=== PATIENT | male | born 1995 | race Two or more races ===

== ENCOUNTER 2025-04-24 10:17 | Outpatient (AMB) | payer MEDICAID, SELFPAY ==
--- OUTSIDE RECORDS SUMMARY | 2024-01-15 12:18 | XMS_ITS | Encounter Summary ---
Author Organization [facility] Address [address] [place] [address] Care Team Providers Care Sourcing Assistant Name Role Phone Pcp, No Primary Care Provider Unavailabl e Encounter Details Date Type Department Care Team (Late st Contact Info) Description 01/15/2024 12:18 PM EDT Hospital Encounter [facility] [address] [place] [address] Renita Carcamo, CHRISTOPHER [address] [place] [address] Social History Tobacco Use Types Packs/Day Years [...] on filedocumented in this encounter Care Teams Sourcing Assistant Relationship Specialty Start Date End Date Pcp, No PCP - General General Medicine 11/10/22 documented as of this encounter
--- NOTE | 2025-04-24 10:22 | A.OFFPC_ITS ---
Vital Signs 04/24/25 10:35 Height 5 ft 10.24 in Weight 184 lb BMI 26.2 BP 132/98 H Blood Pressure Location Lt brachial Position Sitting Respiration 16 Pulse 86 Pulse Source Pulse Oximeter Temp 98.4 F Temp Source Oral Pulse Oximetry (%) 98 Oxygen Delivery Method Room Air Intake Visit Reasons: [employer]- Vasectomy Follow - Up / Pain Intake Note: pt here today for chest pain and high blood pressure. 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 Accompanied by: Self / Same As Patient Allergies No Known Allergies Allergy (Verified 04/24/25 10:30) Medication List - Last Reconciled 04/24/25 by Neptali Paulino MD No Known Home Meds Tobacco use date assessed: 04/24/25 Dental Screening Dental Screen Date: 04/24/25 Did you have a dental visit in the last 12 months?: Yes Did you have a dental problem in the last 6 months where you did not have access to dental care?: No Was dental information given to patient?: Patient has dentist HPI HPI Comments History of Present Illness Details History of Present Illness The patient is a 29-year-old male presenting with chest pain and anxiety. Chest pain: - The patient reports experiencing chest pain for approximately four months, characterized by pressure and exacerbated by deep breaths. - The pain is sometimes associated with anxiety and panic attacks, and is described as feeling like an elephant sitting on the chest. - The patient has not been diagnosed wit h hypertension but experiences headaches when blood pressure is elevated. Anxiety: - The patient reports anxiety and panic attacks, often triggered by stressors such as family issues and past traumatic events. - Symptoms include palpitations, cold fi ngertips, and fatigue following episodes. Tobacco use disorder: - The patient has been smoking cigarette s since the age of 10 or 11, with variable daily consumption depending on stress levels. Cannabis use disorder: - The patient smokes cannabis regularly, approximately every two hours when at home, influenced by stress levels. Inguinal hernia: - The patient has a history of bilateral inguinal hernias with surgical repair two years ago and reports possible recurrence near the umbilicus. Post-vasectomy pain: - The patient underwent a vasectomy two years ago and experiences intermittent pain in the inguinal area, exacerbated by physical activity. Eczema: - The patient reports eczema with patche s on the neck and chest, which began approximately three years ago. Insomnia: - The patient experiences difficulty sle eping, which is not further elaborated in the conversation. Headaches: - The patient reports severe headaches t hat are resistant to medication and have been present since childhood. Health Maintenance - Blood work including complete blood co unt, metabolic panel, hemoglobin A1c, lipid panel, and thyroid function tests planned. - Screening for sexually transmitted inf ections discussed. - Referral to urology and neurology cons idered for further evaluation. Review of Systems - Cardiovascular: Reports chest pain and palpitations. Denies syncope. - Respiratory: Reports dyspnea on exerti on. - Neurological: Reports headaches and co ld fingertips. Denies dizziness. - Dermatological: Reports eczema with it maco patches. - Gastrointestinal: Reports intermittent abdominal pain. 10-point ROS reviewed and negative excep t as noted in HPI Allergies Medications Medication History Current Substance Use - Tobacco: Smokes cigarettes, up to a pa ck a day depending on stress. - Cannabis: Smokes regularly, approximat trevor every two hours when at home. Substance Use History - Tobacco: Started smoking at age 10 or 11. - Cannabis: Regular use influenced by st ress levels. Past Medical History - History of bilateral inguinal hernias with surgical repair. - History of vasectomy with subsequent i ntermittent pain. - History of eczema, onset approximately three years ago. - History of severe headaches since chil dhood. Past Surgical History - Bilateral inguinal hernia repair, appr oximately two years ago. - Vasectomy, approximately two years ago . Family History - Family history of liver cancer. Social History - Employment: Works in [employer]. - Family: with children, signifi cant stress from family dynamics. Physical Exam General: No apparent distress. Alert and oriented x 3. Reports of chest pain and pressure, sometimes associated with anxiety and panic. Head: Normocephalic, atraumatic Eyes: Pupils equal, round, and reactive to light. Extraocular movements intact Throat: O ropharynx clear. Mucus membranes moist Neck: Supple. No lymphadenopathy. Eczema patch noted on the left side of the neck. eft anterior descending artery distention. No jugular vein distention. No bruit. Cardiovascular: Regular rate and rhythm. Normal S1 and S2. No murmurs. Reports of heart beating fast during episodes of anxiety. murmurs, rubs, or gallops Lungs: Clear to auscultation bilaterally. Breath sounds equal bilaterally. No rales, ronchi, or wheezes. Patient is a smoker of cigarettes and weed. Abdomen: Non-tender. Non-distended. Bowel sounds auscultated. Reports of pain below the belly button and in the right inguinal area. History of inguinal hernias and suspicion of umbilical hernia. hepatosplenomegaly. No mass/rebound/guarding Extremities: No cyanosis or clubbing. Fingertips reported to get cold sometimes. lubbing, cyanosis, and edema. 2+ pulses Neuro: Central nerves II-XII grossly intact. Motor/sensory intact. Reflexes 2. Gait normal. Reports of headaches and insomnia. Skin: Warm, dry, and intact. Eczema patches noted on the left side of the neck and chest. Multiple tattoos up and down the arm. Lightening of the skin noted on the back of the neck. No rash. Discussion Notes I discussed with the patient the need for comprehensive blood work to assess overall health, including a complete blood count, metabolic panel, and thyroid function tests. We also discussed the importance of quitting smoking and the potential benefits of seeing a therapist for anxiety management. I recommended follow-up in two weeks to review test results and further evaluate the patient's conditions. Plan 1. Chest Pain - Plan includes obtaining an electrocard iogram and chest x-ray to evaluate the cause of chest pain. INTERCHEST Clinical Prediction Rule for Chest Pain in Primary Care Low risk CAD risk 2.1 % Probability of CAD 2. Anxiety - Discussed the option of therapy referr al for anxiety management. 3. Tobacco Use Disorder - Advised the patient on smoking cessati on options, including patches and medication. 4. Cannabis Use Disorder - Discussed the impact of cannabis use o n health and encouraged reduction. 5. Inguinal Hernia - Plan includes abdominal and pelvic ult rasound to assess for hernia recurrence. 6. Post-Vasectomy Pain - Referred to urology for further evalua tion of post-vasectomy pain. 7. Eczema - Prescribed topical cream for eczema ma nagement. 8. Insomnia - Discussed sleep hygiene and potential interventions for insomnia. 9. Headaches - Referred to neurology for further eval uation of chronic headaches. 10 elevated blood pressure - will monitor and consider starting bp medication Treatment Summary Anticapatory Guidance Patient Instructions - Follow up in two weeks to review test results and discuss further management. - Consider smoking cessation options suc h as patches or medication. - Apply prescribed cream to eczema patch es daily. Diagnostic workup can likely be done non-urgently if patient is otherwise stable INPUTS: History of CAD ?> 0 = No Female >=5 years or male >=5 years ?> 0 = No Chest pain related to effort ?> 0 = No Pain reproducible by palpation ?> 0 = No Physician initially suspected a serious condition ?> 0 = No Chest discomfort feels like ?pressure? ?> 1 = Yes PFSH Medical History (Updated 04/24/25 @ 10:53 by Marlene Soria MA) Visual impairment Migraine Hypertension GERD (gastroesophageal reflux disease) Bipolar 1 disorder ADHD (attention deficit hyperactivity disorder) Surgical History (Updated 04/24/25 @ 10:54 by Marlene Soria MA) History of inguinal hernia repair, bilateral H/O vasectomy H/O laparoscopy Family History (Updated 04/24/25 @ 10:33 by Marlene Soria MA) Father Diabetes High blood pressure Mother Diabetes High blood pressure Social History Housing: House Alcohol intake: current Alcohol intake frequency: does not drink Patient Tobacco Use Status: Current everyday Tobacco user Cigarette Packs Per Day: 1 Cigarettes Per Day: 20 Substance Use Type: Marijuana service: No Current occupational status: employed Cognitive needs: No Hearing needs: No Vision needs: Yes (rx glasses) Questionnaire PHQ-9 Over the last 2 weeks, how often have you been bothered by any of the following problems? 1. Little interest or pleasure in doing things: not at all 2. Feeling down, depressed, or hopeless: not at all 3. Trouble falling or staying asleep, or sleeping too much: not at all 4. Feeling tired or having little energy: not at all 5. Poor appetite or overeating: not at all 6. Feeling bad about yourself - or that you are a failure or have let yourself or your family down: not at all 7. Trouble concentrating on things, such as reading the newspaper or watching television: not at all 8. Moving or speaking so slowly that other people could have noticed. Or the opposite - being so fidgety or restless that you have been moving around a lot more than usual: not at all 9. Thoughts that you would be better off or of hurting yourself in some way: not at all Total score: 0 Source: Developed by Drs. Vinicius L. Martha, Johnathon Wilkinson and colleagues, with an educational kim from [employer]. Thrive Questionnaire Date Thrive assessed: 04/24/25 I am a: Patient What is your living situation today?: I have a steady place to live Within the past 12 months, did the food you bought not last and you didn't have the money to get more?: Never true Do you have trouble paying for medicines?: No Do you have trouble getting transportation to medical appointments?: No Do you have trouble paying your heating and electricity bill?: No Do you have trouble taking care of your child, family member or friend?: No Do you have trouble with day-to-day activities such as bathing, preparing meals, shopping, managing finances, etc.?: No Are you currently unemployed and looking for a job?: No Are you interested in more education?: No Please select the resources that you would like help with: None Currently or been in a relationship where the following occur: No concerns reported THRIVE Score: 0 AUDIT C Alcohol Use Questionnaire (AUDIT-C) 1. How often do you have a drink containing alcohol?: Never 3. How often do you have six or more drinks on one occasion?: Never Total Score: 0 ARIANNE-7 AMB Questionnaire ARIANNE-7 Date ARIANNE - 7 assessed: 04/24/25 Feeling nervous, anxious, or on edge: 3 = Nearly every day Not being able to stop or control worryin = Nearly every day Worrying too much about different things: 3 = Nearly every day Trouble relaxin = Nearly every day Being so restless that it is hard to sit still: 2 = More than half the days Becoming easily annoyed or irritable: 2 = More than half the days Feeling afraid as if something awful might happen: 3 = Nearly every day Total ARIANNE-7 score (0-4 normal; 5-9 mild; 10-14 moderate; 15-21 severe): 19 Source: Developed by Drs. Vinicius Thomas, Johnathon Wilkinson and colleagues, with an educational kim from [employer]. Physical exam (Primary Care) Vital Signs: Last Vital Signs Temp 98.4 F 04/24/25 10:35 Pulse 86 04/24/25 10:35 Resp 16 04/24/25 10:35 BP 132/98 H 04/24/25 10:35 Pulse Ox 98 04/24/25 10:35 Oxygen Delivery Method Room Air 04/24/25 10:35 BMI result Body Mass Index 26.2 Tobacco/Smoking Status: Tobacco use Status Tobacco use date assessed 04/24/25 04/24/25 10:26 Patient Tobacco Use Status Current everyday Tobacco 04/24/25 10:38 PHQ-9: PHQ-9 Score PHQ-9: Total score 0 04/24/25 10:34 Thrive Assessment: Date of Thrive Assessment Date Thrive assessed 04/24/25 04/24/25 10:26 Currently or been in a relationship where the following occur: No concerns reported Coding Level of Care Code New Pt Level 3 (79131) Diagnoses Encounter to establish care Z76. Routine lab draw Z. Screening for diabetes mellitus Z13.1 Screening for lipoid disorders Z13.220 Hypertension screen Z13.6 H/O vasectomy Z98.52 Counseling, unspecified Z71.9 Pain R52 Elevated blood pressure reading R03.0 Overweight (BMI 25.0-29.9) E66.3 Pelvic pain R10.2 Periumbilical abdominal pain R10.33 Abdominal location: periumbilical Chest pain on breathing R07.1 Chest pain type: chest pain on breathing Chronic nonintractable headache, unspecified headache type R51.9; G89.29 Headache type: unspecified Intractability: not intractable Other eczema L30.8 Eczema type: other Other insomnia G47.09 Insomnia type: other insomnia History of inguinal hernia Z87.19 Anxiety F41.9 Cigarette nicotine dependence without complication F17.210 Nicotine product type: cigarettes Substance use status: uncomplicated Cannabis use disorder F12.90 Assessment & Plan Assessment & Plan (1) Encounter to establish care: Code(s): Z76.89 - Persons encountering health services in other specified circumstances (2) Routine lab draw: Code(s): Z01.89 - Encounter for other specified special examinations (3) Screening for diabetes mellitus: Code(s): Z13.1 - Encounter for screening for diabetes mellitus (4) Screening for lipoid disorders: Code(s): Z13.220 - Encounter for screening for lipoid disorders (5) Hypertension screen: Code(s): Z13.6 - Encounter for screening for cardiovascular disorders (6) H/O vasectomy: Code(s): Z98.52 - Vasectomy status (7) Counseling, unspecified: Code(s): Z71.9 - Counseling, unspecified (8) Pain: Code(s): R52 - Pain, unspecified (9) Elevated blood pressure reading: Code(s): R03.0 - Elevated blood-pressure reading, without diagnosis of hypertension (10) Overweight (BMI 25.0-29.9): Code(s): E66.3 - Overweight (11) Pelvic pain: Code(s): R10.2 - Pelvic and perineal pain (12) Abdominal pain: Code(s): R10.9 - Unspecified abdominal pain Qualifiers: Abdominal location: periumbilical Qualified Code(s): R10.33 - Periumbilical pain (13) Chest pain: Code(s): R07.9 - Chest pain, unspecified Qualifiers: Chest pain type: chest pain on breathing Qualified Code(s): R07.1 - Chest pain on breathing (14) Chronic headaches: Code(s): R51.9 - Headache, unspecified; G89.29 - Other chronic pain Qualifiers: Headache type: unspecified Intractability: not intractable Qualified Code(s): R51.9 - Headache, unspecified; G89.29 - Other chronic pain (15) Eczema: Code(s): L30.9 - Dermatitis, unspecified Qualifiers: Eczema type: other Qualified Code(s): L30.8 - Other specified dermatitis (16) Insomnia: Code(s): G47.00 - Insomnia, unspecified Qualifiers: Insomnia type: other insomnia Qualified Code(s): G47.09 - Other insomnia (17) History of inguinal hernia: Code(s): Z87.19 - Personal history of other diseases of the digestive system (18) Anxiety: Code(s): F41.9 - Anxiety disorder, unspecified (19) Nicotine dependence: Code(s): F17.200 - Nicotine dependence, unspecified, uncomplicated Qualifiers: Nicotine product type: cigarettes Substance use status: uncomplicated Qualified Code(s): F17.210 - Nicotine dependence, cigarettes, uncomplicated (20) Cannabis use disorder: Code(s): F12.90 - Cannabis use, unspecified, uncomplicated Plan Orders: Orders Hemoglobin A1c Today Z76.89 - Persons encountering health services in other specified circumstances Hepatitis B Surface Antibody Today Z76.89 - Persons encountering health s ervices in other specified circumstances Hepatitis B Surface Antigen Today Z76.89 - Persons encountering health services in other specified circumstances Lipid Panel Today Z76.89 - Persons encountering health services in other specified circumstances Microalbumin, Random (w Creat) Today Z76.89 - Persons encountering health services in other specified circumstances Chlamydia Species Ab Panel Today Z76.89 - Persons encountering health services in other specified circumstances CT NG by PCR Urine Today Z76.89 - Persons encountering health services in other specified circumstances Syphilis Screen Today Z76.89 - Persons encountering health services in other specified circumstances Vitamin B12 and Folate Today Z76.89 - Persons encountering health services in other specified circumstances US abdomen complete Today R10.9 - Unspecified abdominal pain XR chest 2V Today R07.9 - Chest pain, unspecified Complete Blood Count Auto Diff Today Z76.89 - Persons encountering health services in other specified circumstances Comprehensive Met. Panel Today Z76.89 - Persons encountering health services in other specified circumstances Hepatitis C Antibody Today Z76.89 - Persons encountering health services in other specified circumstances HIV Ab/Ag Today Z76.89 - Persons encountering health services in other specified circumstances UA CC w/rflx Micro + Cult Today Z76.89 - Persons encountering health services in other specified circumstances TSH reflex Free T4 Today Z76.89 - Persons encountering health services in other specified circumstances US pelvic complete Today R10.2 - Pelvic and perineal pain, R52 - Pain, unspecified, Z98.52 - Vasectomy status ECG 12 lead EKG Today R07.9 - Chest pain, unspecified Referrals Urology Referral Z76.89 - Persons encountering health services in other specified circumstances Neurology Referral G89.29 - Other chronic pain, R51.9 - Headache, unspecified Medications: New triamcinolone acetonide 0.1% 1 appl topical DAILY 30 grams 0RF
[2025-04-24 10:35] VITALS: BP 132/98; PULSE 86; RESP 16; TEMP 36.9; O2SAT 98; BMI 26.2
--- OUTSIDE RECORDS SUMMARY | 2025-04-24 12:48 | XMS_ITS | Patient Health Record ---
Author Organization [facility] enter Address [address] [place] [address] Care Team Providers Care Methods Specialist Engineer Name Role Phone Claudio Palmira Primary Care Provider [phone] Reason For Referral No Information Social History Tobacco Use: Social History Observation Description Date Details (start date - stop date) Current Smoker NA - NA Sex Assigned At : Social History Observation Description Sex Assigned At Male * Tobacco Use/Smoking assessment Question Answer Notes Are you a current smoker How often do you smoke cigarettes? every day How many cigarettes a day do you smoke? 5 or les s Alcohol Screen (Audit-C) Question Answer Notes Did you have a drink containing alcohol in the p ast year? No Points 0 Interpretation Negative Sexual History Question Answer Notes Had sex in the past 12 months (vaginal, oral, or anal)? Yes with Women only Use protection? No Have you ever had a Sexually transmitted disease ? No SBIRT Question Answer Notes Patient refused/declined SBIRT screening at this time? No In the past 12 months, did y ou smoke pot, use another street drug, or use a prescription painkiller, stimulant, or sedative for a non-medical reason? No In the past 3 months, how of ten do you have 4 or more drinks on one occasion? Females (and Males 65 and older). In the past 3 months, how often do you have 5 or more drinks on one occasion? Males (younger than 65) Never In the past 3 months, how of ten do you have a drink containing alcohol? Never The cumulative score is 0 A referral is not needed Section Notes: Reports history of marijuana , last used 2009. Reports history of marijuana , last used 2009. Reports history of marijuana , last used 2009. Problems Problem Type SNOMED Code ICD Code Onset Dates Problem Status W/U Status Risk Notes Problem Mixed hyperlipidemia (761430101) Mixed hyperlipidemia (E78.2) Active confirmed Problem Essential hypertension (26507966) Essential hypertension (I10) Active confirmed Problem Obesity (986163245) Obesity, Class I, BMI 30-34.9 (E66.9) Active confirmed Plan Of Treatment Pending Test Test Name Order Date CHLAMYDIA/N. GONORRHOEAE DNA, SDA 2017 Insurance Providers Payer Name Payer Address Payer Phone Subscriber Number Group Number Insured Name Patient Relationship to Insured Coverage Start Date Coverage End Date Medicare A NGS PPS UB [address] [place], [place] [id number] Macho Arambula Self - patient is the insured [facility] A SECONDARY [address] [place], [place] [id number] Macho Arambula Self - patient is the insured Medical (General) History Medical History History ICD Code Bipolar Disorder ADHD Obesity class I Hyperlipidemia Htn Surgical History Surgery Date(Month/Year)
--- OUTSIDE RECORDS SUMMARY | 2025-04-24 12:48 | XMS_ITS | Clinical Summary ---
Author Organization [facility] Address [address] [place] [address] Phone Care Team Providers Care Verify Rep Name Role Phone Physician, No Pcp Primary Care Provider Unavaila ble Allergies No known active allergies Medications losartan (COZAAR) 25 mg tablet Take 1 tablet (25 mg total) by mouth 1 (one) time each day for 14 days. 14 each 5 Active oxymetazoline (AFRIN) 0.05 % nasal spray Administer 2 sprays into each nostril 2 (two) times a day for 3 days. Do not use longer than 3 days. 30 mL 5 Active fluticasone propionate (FLONASE) 50 mcg/actuation nasal spray Administer 1 spray into each nostril 1 (one) time each day. Shake gently. Before first use, prime pump. After use, clean tip and replace cap. 16 g 5 Active cetirizine-pseu doephedrine (ZyrTEC-D) 5-120 mg per 12 hr tablet Take 1 tablet by mouth 2 (two) times a day. 60 each 5 Active Encounters Date Type Department Care Team Description 03/07/2025 3:24 PM EDT - 03/07/2025 3:32 PM EDT Emergency [facility] Emergency [address] [place] [address] Paronychia of finger, unspecified laterality (Primary Dx) Discharge Disposition: Home or Self Care 02/09/2025 10:48 AM EDT - 02/09/2025 12:09 PM EDT Emergency [facility] Emergency [address] [place] [address] Nasal turbinate hypertrophy (Primary Dx) Discharge Disposition: Home or Self Care from Last 3 Months Surgical History Surgery Date Site/Laterality Comments VASECTOMY PROCEDURE:VASECTOMY HERNIA REPAIR 02/08/2023 Bilateral PROCEDURE:INGUINAL HERNIA REPAIR;COMMENT:Procedure: LAPAROSCOPY REPAIR HERNIA INGUINAL; Surgeon: Anthony Wharton MD; Location: [facility] AM[facility]UL[facility] SUR[facility]ERY; Service: General; Laterality: Bilateral; THIS IS A 90 MIN CASE Medical History Medical History Date Comments ADHD (attention deficit hype ractivity disorder) DX:ADHD (attention deficit h yperactivity disorder) Bipolar 1 disorder (CMS/HCC V24, CMS/HCC V28) DX:Bipolar 1 disorder ([facility]) Migraine DX:Migraine GERD (gastroesophageal reflux disease) DX:GERD (gastroesophageal reflux disease) Hypertension DX:Hypertension Visual impairment DX:Visual impa irment Family History Medical History Relation Name Comments Diabetes Father Hypertension Father Diabetes Maternal Grandmother Hypertension Maternal Grandmother Diabetes Mother Hypertension Mother Diabetes Paternal Grandmother Hypertension Paternal Grandmother Relation Name Status Comments Father Maternal Grandmother Mother Paternal Grandmother Social History Tobacco Use Types Packs/Day Years Used Date Smoking Tobacco: Every Day Cigarettes 1.3 18.7 Started: 08/14/2006 Smokeless Tobacco: Never Alcohol Use Standard Drinks/Week Comments Not Currently 0 (1 standard drink = 0.6 oz pur e alcohol) Sex and Gender Information Value Date Recorded Sex Assigned at Male 12/31/2024 12:36 PM EDT Legal Sex Male 10:24 PM EDT Gender Identity Male 12/31/2024 12:36 PM EDT Sexual Orientation Not on file Obstetrics History Last Filed Vital Signs Vital Sign Reading Time Taken Comments Blood Pressure 155/93 03/07/2025 3:20 PM EDT Pulse 99 03/07/2025 3:20 PM EDT Temperature 36.7 C (98.1 F) 03/07/2025 3:20 PM EDT Respiratory Rate 16 03/07/2025 3:20 PM EDT Oxygen Saturation 99% 03/07/2025 3:20 PM EDT Inhaled Oxygen Concentration - - Weight 79.8 kg (176 lb) 03/07/2025 3:20 PM EDT Height 182.9 cm (6') 03/07/2025 3:20 PM EDT Body Mass Index 23.87 03/07/2025 3:20 PM EDT Plan of Treatment Health Maintenance Due Date Last Done Comments IPV Vaccines (4 of 4 - 4-dose series) 1998 06/26/1995, 04/28/1995, 02/23/1995 DTaP,Tdap,and Td Vaccines (5 - Tdap) 2005 04/08/1996, 06/26/1995, 04/28/1995, Additional history exists Pneumococcal Vaccine: Pediatrics (0 to 5 Years) and At-Risk Patients (6 to 49 Years) (1 of 2 - PCV) 2013 Cholesterol Screening (Lipid Panel) 05/11/2023 HIV Screening 05/11/2023 Hepatitis C Screening 05/11/2023 Medicare Annual Wellness Visit 05/11/2023 Social Influencers of Health Screening 05/11/2023 Depression Screening 08/14/2024 COVID-19 Vaccine ( - season) 2025 12/29/2020, 12/01/2020 Influenza Vaccine (#1) 2025 Hypertension/CHF/CAD Annual BMP Blood Test 12/31/2025 12/31/2024, 11/04/2022 Hepatitis B Vaccines Completed 10/07/1995, 01/26/1995, 1994 MMR Vaccines Completed 01/05/1996 HIB Vaccines Completed 04/08/1996, 06/14, 04/28/1995, Additional history exists HPV Vaccines Aged Out No longer eligi ble based on patient's age to complete this topic Hepatitis A Vaccines Aged Out No long er eligible based on patient's age to complete this topic Meningococcal ACWY Vaccine Aged Out N o longer eligible based on patient's age to complete this topic Meningococcal B Vaccine Aged Out No l onger eligible based on patient's age to complete this topic RSV Immunization Patients Under 20 months Aged Out No longer eligible based on patient's age to complete this topic Varicella Vaccines Aged Out No longer eligible based on patient's age to complete this topic Medical Devices Implanted Type Area Agile Test Lead Device Identifier Shelf Expiration Date Model / Serial / Lot Mesh 3d Max 4.3x6.3 Rt Lrg Dimensional Prefrm Rt Ster No Crba-Davl [id number] Implanted:Qty: 1 on 02/08/2023 by Anthony Wharton MD Right: Inguinal CR BARD - DAVOL DIV 07/11/2027 [id number] / / [id number] Mesh 3d Max 4.3x6.3 Lft Lrg Dimensional Prefrm Lft Ster N Crba-Davl [id number] Implanted:Qty: 1 on 02/08/2023 by Anthony Wharton MD Right: Inguinal CR BARD - DAVOL DIV 06/10/2027 [id number] / / [id number] Procedures Procedure Name Priority Date/Time Associated Diagnosis Comments COMPREHENSIVE METABOLIC PANEL STAT 12/31/2024 12:32 PM EDT from Last 3 Months or Most Recently Relevant to Health Maintenance Results * (ABNORMAL) Comprehensive Metabolic Panel (CMP) (12/31/2024 12:32 PM EDT) Sodium 139 135 - 145 mmol/L LAB CHEMISTRY METHOD 12/31/2024 1:12 PM EDT [facility] Potassium 3.7 3.5 - 5.1 mmol/L LAB CHEMISTRY METHOD 12/31/2024 1:12 PM EDT [facility] Chloride 103 98 - 107 mmol/L LAB CHEMISTRY METHOD 12/31/2024 1:12 PM EDT [facility] CO2 27 24 - 32 mmol/L LAB CHEMISTRY METHOD 12/31/2024 1:12 PM EDT [facility] Anion Gap 9 5 - 14 LAB CHEMISTRY METHOD 12/31/2024 1:12 PM EDT [facility] Glucose 95 70 - 199 mg/dL LAB CHEMISTRY METHOD 12/31/2024 1:12 PM EDT [facility] BUN 11 9 - 20 mg/dL LAB CHEMISTRY METHOD 12/31/2024 1:12 PM EDT [facility] Creatinine 0.70 0.70 - 1.30 mg/dL LAB CHEMISTRY METHOD 12/31/2024 1:12 PM EDT [facility] eGFR 127 >=60 mL/min/1. 73m2 LAB CHEMISTRY METHOD 12/31/2024 1:12 PM EDT [facility] Comment:Calculation based on the Chronic Kidney Disease Epidemiology Collaboration (CKD-EPI) equation refit without adjustment for race. BUN/Creatinine Ratio 15.7 12.0 - 20.0 LAB CHEMISTRY METHOD 12/31/2024 1:12 PM EDT [facility] Calcium 9.5 8.4 - 10.2 mg/dL LAB CHEMISTRY METHOD 12/31/2024 1:12 PM EDT [facility] AST (SGOT) 18 5 - 40 unit/L LAB CHEMISTRY METHOD 12/31/2024 1:12 PM EDT [facility] ALT (SGPT) 20 7 - 52 unit/L LAB CHEMISTRY METHOD 12/31/2024 1:12 PM EDT [facility] Alkaline Phosphatase 57 34 - 104 unit/L LAB CHEMISTRY METHOD 12/31/2024 1:12 PM EDT [facility] Total Protein 7.3 6.4 - 8.5 g/dL LAB CHEMISTRY METHOD 12/31/2024 1:12 PM EDT [facility] Albumin 4.6 3.5 - 5.0 g/dL LAB CHEMISTRY METHOD 12/31/2024 1:12 PM EDT [facility] Total Bilirubin 1.1(H) 0.3 - 1.0 mg/dL LAB CHEMISTRY METHOD 12/31/2024 1:12 PM EDT [facility] Blood Venous blood specimen / Unknown Venipuncture / Unknown 12/31/2024 12:32 PM EDT 12/31/2024 12:37 PM EDT us Yusuf Mckay NP LAB BLOOD ORDERABLES Final Res ult [facility] [address] [place] [address], [place] [phone] from Last 3 Months or Most Recently Relevant to Health Maintenance Insurance [place]ICARE [place] - [place] Care Teams Verify Rep Relationship Specialty Start Date End Date Physician, No Pcp PCP - General 12/31/24
--- OUTSIDE RECORDS SUMMARY | 2025-04-24 12:48 | XMS_ITS | Clinical Summary ---
Author Organization [facility] Address [address] [place] [address] Care Team Providers Care Canoe Inspector Name Role Phone Coleen Norman MD Primary Care Provider Unav ailable Allergies No known active allergies Medications Medication Sig Dispensed Refills Start Date End Date Status Spacer/Aero-Holding Chambers (INSPIREASE, SPACER,) MISC device Inhale 1 each into the lungs as needed. 1 each 0 07/30/2022 Active Blood Pressure Monitoring (Procare Upper Arm BP Monitor) DEVIIndications:Elev ated blood pressure reading CHECK BLOOD PRESSURE ONCE DAILY. DX: I10 LENGTH OF NEED 99. AUTOMATC BP MONITOR 1 each 0 01/09/2024 Active Minoxidil (Rogaine Mens) 5 % FOAMIndications:Alop ecia Apply 1 Application topically 2 (two) times a day. 60 g 1 03/20/2024 Active Active Problems Problem Noted Date Diagnosed Date Alopecia 03/22/2024 Inguinal hernia, right 01/18/2023 Inguinal hernia, left 01/18/2023 Bilateral recurrent inguinal hernia without obstruction or gangrene 01/03/2023 Bipolar 1 disorder 01/03/2023 Overview: Currently not on medication. Immunizations Name Administration Dates Next Due Covid-19 (Moderna 12+) 100mc g/0.5mL dosage 12/29/2020,12/01/2020 DTP / HiB 04/08/1996, 5,04/28/1995,1994 Hepatitis B, Unspecified formulation 10/07/1995, 01/26/1995,1994 MMR 01/05/1996 OPV 06/26/1995,04/28/1995,02/23/1995 Family History Medical History Relation Name Comments Diabetes Father Hypertension Father Diabetes Maternal Grandmother Hypertension Maternal Grandmother Diabetes Mother Hypertension Mother Diabetes Paternal Grandmother Hypertension Paternal Grandmother Relation Name Status Comments Father Maternal Grandmother Mother Paternal Grandmother Social History Tobacco Use Types Packs/Day Years Used Date Smoking Tobacco: Every Day Cigarettes 1.3 16 Started: 08/14/2006 Smokeless Tobacco: Never Tobacco Cessation:Ready to Q uit: Not Asked; Counseling Given: Not Answered Alcohol Use Standard Drinks/Week Comments Not Currently 0 (1 standard drink = 0.6 oz pur e alcohol) Sex and Gender Information Value Date Recorded Sex Assigned at Male 07/30/2022 9:00 PM EST Gender Identity Not on file Sexual Orientation Not on file Job Start Date Occupation Industry Not on file Not on file Not on file Last Filed Vital Signs Vital Sign Reading Time Taken Comments Blood Pressure 132/82 03/20/2024 7:09 PM EDT Pulse 91 03/20/2024 7:09 PM EDT Temperature 36.8 C (98.2 F) 10/12/2023 9:15 AM EST Respiratory Rate 20 10/07/2023 2:52 PM EST Oxygen Saturation 98% 10/12/2023 9:15 AM EST Inhaled Oxygen Concentration - - Weight 85.7 kg (189 lb) 03/20/2024 7:09 PM EDT Height 182.9 cm (6') 10/12/2023 9:15 AM EST Body Mass Index 25.63 10/12/2023 9:15 AM EST Plan of Treatment Health Maintenance Due Date Last Done Comments Hepatitis C Screening 1994 Pneumococcal Vaccine (1 of 2 - PCV) 2000 DTap / Tdap / Td (5 - Tdap) 2005 08/2 01/1996, 06/26/1995, 04/28/1995, Additional history exists Depression Screening 2006 Preventative Health Evaluation 2012 Tobacco Cessation Counseling 2012 BMI Counseling 01/19/2024 01/18/2023 COVID-19 Vaccine ( season) 2025 12/29/2020, 12/01/2020 Influenza Vaccine (#1) 2025 Hepatitis B Vaccines Completed 10/07/1995, 01/26/1995, 1994 RSV Ped < 20 months Aged Out No longe r eligible based on patient's age to complete this topic Medical Devices Implanted Type Area Warehouse Specialist Device Identifier Shelf Expiration Date Model / Serial / Lot Mesh 3d Max 4.3x6.3 Rt Lrg Dimensional Prefrm Rt Ster No Crba-Davl [id number] - [id number] Implanted:Qty: 1 on 02/08/2023 by Anthony Wharton MD at [facility] [place] Right: Inguinal CR BARD - DAVOL DIV 07/11/2027 [id number] / / [id number] Mesh 3d Max 4.3x6.3 Lft Lrg Dimensional Prefrm Lft Ster N Crba-Davl [id number] - [id number] Implanted:Qty: 1 on 02/08/2023 by Anthony Wharton MD at [facility] and [facility] Right: Inguinal CR BARD - DAVOL DIV 06/10/2027 [id number] / / [id number] Care Teams Canoe Inspector Relationship Specialty Start Date End Date Coleen Norman MD PCP - General 02/07/24
--- OUTSIDE RECORDS SUMMARY | 2025-04-24 12:48 | XMS_ITS | Clinical Summary ---
Author Organization [facility] Address [address] [place] [address] Care Team Providers Care Senior Patient Account Representative Name Role Phone Pcp, No Primary Care Provider Unavailabl e Allergies No known active allergies Medications brompheniramine -pseudoephedrin e-DM (BROMFED DM) 30-2-10 MG/5ML syrupIndication s:Viral URI with cough Take 5 mL by mouth 4 (four) times a day as needed for congestion, cough or allergies. 120 mL 12/12/2022 Active benzonatate (TESSALON) 200 MG capsuleIndicati ons:Viral URI with cough Take 1 capsule (200 mg total) by mouth 3 (three) times a day as needed for cough. 20 capsule 12/12/2022 Active Active Problems No known active problems Social History Tobacco Use Types Packs/Day Years Used Date Smoking Tobacco: Every Day Cigarettes Smokeless Tobacco: Never Tobacco Cessation:Ready to Q uit: Not Asked; Counseling Given: Not Answered Alcohol Use Standard Drinks/Week Comments Never 0 [...] Orientation Heterosexual (straight) 11/10 10:29 AM EDT Last Filed Vital Signs Vital Sign Reading Time Taken Comments Blood Pressure 140/88 08/16/2024 11:41 AM EST Pulse 86 08/16/2024 11:41 AM EST Temperature 36.9 C (98.4 F) 08/16/2024 11:41 AM EST Respiratory Rate 16 01/15/2024 12:01 PM EDT Oxygen Saturation 97% 08/16/2024 11:41 AM EST Inhaled Oxygen Concentration - - Weight 79.4 kg (175 lb) 08/16/2024 11:41 AM EST Height 182.9 cm (6') 08/16/2024 11:41 AM EST Body Mass Index 23.73 08/16/2024 11:41 AM EST Plan of Treatment Health Maintenance Due Date Last Done Comments Hepatitis C Virus Screening 1994 HIV Screening 12/26/2007 DTaP/Tdap/Td Vaccines (1 - Tdap) 2013 Hepatitis B Vaccines (1 of 3 - 19+ 3-dose series) 2013 Pneumococcal Vaccine: Pediat chris (0-5 Years) and At-Risk Patients (6 to 49 Years) (1 of 2 - PCV) 2013 HPV Vaccines (1 - 3-dose SCDM series) 2021 Influenza Vaccine 03/14/2025 COVID-19 Vaccine (3 - 2024- season) 2025, 12/01/2020 Insurance [facility] MEDICARE PART A & B [place] [id number] MEDICARE PART A & B [facility] Care Teams Senior Patient Account Representative Relationship Specialty Start Date End Date Pcp, No PCP - General General Medicine 11/10/22
== END 2025-04-24 11:10 | disposition home or self-care (01) ==
PROVIDERS: PCP Student in an Organized Health Care Education/Training Program; Visit Provider Student in an Organized Health Care Education/Training Program
DX: R03.0 Elevated blood-pressure reading, without diagnosis of hypertension (principal); E66.3 Overweight; R10.33 Periumbilical pain; R07.1 Chest pain on breathing; Z98.52 Vasectomy status; R51.9 Headache, unspecified; G89.29 Other chronic pain; L30.8 Other specified dermatitis; G47.09 Other insomnia; Z87.19 Personal history of other diseases of the digestive system; F41.9 Anxiety disorder, unspecified; F17.210 Nicotine dependence, cigarettes, uncomplicated

== ENCOUNTER 2025-04-24 10:17 | Outpatient (REF) | payer MEDICAID, SELFPAY ==
[2025-04-24 13:11] LABS: MANUAL DIFF FLAG NO
[2025-04-24 13:20] LABS: Appearance Urine Clear; Glucose Urine UA Negative (Negative); PH 5.5 (5.0-9.0); Specific Gravity - Urine 1.025 (1.005-1.025); UMIC TRIGGER UACC YES
[2025-04-24 13:22] LABS: Hematocrit 46.0 % (42.0-52.0); Hemoglobin 15.9 g/dl (14.0-18.0); Imm Gran Abs Auto 0.02 X10*3/uL (0.00-0.03); Imm Gran Pct Auto 0.2 % (0.0-0.4); Lymphocytes Absolute Auto 2.5 X10*3/uL (1.2-4.9); Mean Corpuscular HGB Conc 34.6 g/dl (31.0-36.0); Mean Corpuscular Hemoglobin 30.2 pg (27.0-33.0); Mean Corpuscular Volume 87.5 fL (80.0-98.0); NRBC Abs Auto 0.000 X10*3/uL (0.0-0.012); NRBC Pct Auto 0.0 /100WBC (0.0-0.2); Platelet Count 268 X10*3/uL (160-400); Red Blood Count 5.26 X10*6/uL (4.60-5.80); White Blood Count 10.2 X10*3/uL (4.8-10.8)
[2025-04-24 14:16] LABS: Microalbum/Creatinine Ratio Ur 3.6 ug/mg cr (<30)
[2025-04-24 15:08] LABS: CT PCR Urine NOT DETECTED (Not Detect.); NG PCR Urine NOT DETECTED (Not Detect.)
--- OUTSIDE RECORDS SUMMARY | 2025-04-24 15:37 | XMS_ITS ---
Author Name [facility] Organization Unknown Results Test Name/Text Value Interpretation Date Range Source Bilirub SerPl-mCnc 1.1 mg/dL Above high normal 12/31/2024 0.3 - 1 [facility] Chloride SerPl-sCnc 103.0 mmol/L 12/31/2024 98 - 107 [facility] Calcium SerPl-mCnc 9.5 mg/dL 12/31/2024 8.4 - 10.2 [facility] Creat SerPl-mCnc 0.7 mg/dL 12/31/2024 0.7 - 1.3 CT [facility] BUN SerPl-mCnc 11.0 mg/dL 12/31/2024 9 - 20 [facility] ALP SerPl-cCnc 57.0 unit/L 12/31/2024 34 - 104 [facility] ALT SerPl-cCnc 20.0 unit/L 12/31/2024 7 - 52 [facility] Sodium SerPl-sCnc 139.0 mmol/L 12/31/2024 135 - 14 5 [facility] Albumin SerPl-mCnc 4.6 g/dL 12/31/2024 3.5 - 5 [facility] Glucose SerPl-mCnc 95.0 mg/dL 12/31/2024 70 - 199 [facility] CO2 SerPl-sCnc 27.0 mmol/L 12/31/2024 24 - 32 [facility] Anion Gap SerPl Calc-sCnc 9.0 12/31/2024 5 - 14 [facility] AST SerPl-cCnc 18.0 unit/L 12/31/2024 5 - 40 [facility] BUN/Creat SerPl 15.7 12/31/2024 12 - 20 [facility] Prot SerPl-mCnc 7.3 g/dL 12/31/2024 6.4 - 8.5 [facility] Potassium SerPl-sCnc 3.7 mmol/L 12/31/2024 3.5 - 5.1 [facility] eGFRcr SerPlBld CKD-EPI 2020 127.0 mL/min/1.73m2 12/31/2024 - [facility] RDW RBC Auto 13.3 % 12/31/2024 12.1 - 17.7 [facility] RBC Auto 87.9 FL 12/31/2024 78 - 100 [facility] Hgb Bld-mCnc 15.3 g/dL 12/31/2024 13.5 - 18 [facility] RBC # Bld Auto 4.9 M/mcL 12/31/2024 4.7 - 6 [facility] WBC # Bld Auto 7.8 K/mcL 12/31/2024 4 - 10.5 [facility] MCH RBC Qn Auto 31.2 pcg 12/31/2024 25 - 33 [facility] Hct VFr Bld Auto 43.1 % 12/31/2024 40 - 54 [facility] PMV Bld Auto 8.3 FL 12/31/2024 7.4 - 11.4 [facility] MCHC RBC Auto-EntMCnc 35.5 g/dL 12/31/2024 32 - 36 [facility] Platelet # Bld Auto 214.0 K/mcL 12/31/2024 150 - 450 [facility] Glucose Ur Ql Negative 12/31/2024 - [facility] RBC #/area UrnS HPF 1.0 /HPF 12/31/2024 0 - 3 [facility] Nitrite Ur Ql Negative 12/31/2024 - [facility] Hgb Ur Ql Small Abnormal 12/31/2024 - [facility] Mucous Threads #/area UrnS HPF Present Abnormal 12/31/2024 - [facility] Ketones Ur-mCnc Trace Abnormal 12/31/2024 - [facility] WBC #/area UrnS HPF 1.0 /HPF 12/31/2024 0 - 5 [facility] Leukocyte esterase Ur Ql Strip Negative 12/31/2024 - [facility] Clarity Ur Clear 12/31/2024 - [facility] Squamous #/area UrnS HPF 0.0 /HPF 12/31/2024 0 - 5 [facility] Sp Gr Ur 1.017 12/31/2024 1.005 - 1.03 [facility] Color Ur Yellow 12/31/2024 - [facility] Prot Ur Strip-mCnc Negative 12/31/2024 - [facility] pH Ur 5.0 pH Abnormal 12/31/2024 5 - 8 [facility] TSH SerPl DL<=0.005 mIU/L-aCnc 1.1 uIU/mL Normal 03/21/2024 0.45 - 5.33 [facility] History of Medication Use Medication Directions Dispensed Refills Start Date End Date Stat cephalexin (KEFLEX) 500 mg capsule Take 1 capsule (500 mg total) by mouth 4 (four) times a day for 10 days. 03/07/2025 active ibuprofen (ADVIL,MOTRIN) 800 mg tablet Take 1 tablet by mouth every 6-8 hours as needed for pain. 03/07/2025 active cetirizine-pseudoephe drine (ZyrTEC-D) 5-120 mg per 12 hr tablet Take 1 tablet by mouth 2 (two) times a day. 02/09/2025 active fluticasone propionate (FLONASE) 50 mcg/actuation nasal spray Administer 1 spray into each nostril 1 (one) time each day. Shake gently. Before first use, prime pump. After use, clean tip and replace cap. 02/09/2025 active oxymetazoline (AFRIN) 0.05 % nasal spray Administer 2 sprays into each nostril 2 (two) times a day for 3 days. Do not use longer than 3 days. 02/09/2025 active losartan (COZAAR) 25 mg tablet Take 1 tablet (25 mg total) by mouth 1 (one) time each day for 14 days. 12/31/2024 active finasteride (PROPECIA) 1 MG tablet Take 1 tablet (1 mg total) by mouth daily. 03/20/2024 07/19/2024 active fluconazole (DIFLUCAN) 150 MG tablet Take 2 tablets (300 mg total) by mouth once a week for 2 doses. 03/20/2024 03/29/2024 active cyclobenzaprine (FLEXERIL) 10 MG tablet Take 0.5 tablets (5 mg total) by mouth 3 (three) times a day as needed for muscle spasms. 03/03/2023 03/20/2024 aborted cyclobenzaprine (FLEXERIL) 10 MG tablet Take 0.5 tablets (5 mg total) by mouth 3 (three) times a day as needed for muscle spasms. 03/03/2023 active oxyCODONE-acetaminoph en (PERCOCET) 5-325 mg per tablet Take 1 tablet by mouth 4 times daily (every 6 hours) as needed for moderate pain or severe pain. Max Daily Amount: 4 tablets 11/11/2022 12/12/2022 active albuterol 108 (90 Base) MCG/ACT inhaler Inhale 2 puffs into the lungs every 6 (six) hours as needed for wheezing. 07/30/2022 03/20/2024 aborted albuterol 108 (90 Base) MCG/ACT inhaler Inhale 2 puffs into the lungs every 6 (six) hours as needed for wheezing. 07/30/2022 active methocarbamol (ROBAXIN) 750 MG tablet Take 1 tablet (750 mg total) by mouth 3 (three) times a day. 01/20/2022 active No known medications No known medications active Problems Problem Status Onset Date Problem Type Date of Resolution Source Paronychia of finger, unspecified laterality active EncounterDiagnosisAct [facility] Alopecia active EncounterDiagnosisAct [facility] Left upper quadrant abdominal pain active EncounterDiagnosisAct [facility] Bilateral recurrent inguinal hernia without obstruction or gangrene active 2023-01-03 ProblemAct [facility] Inguinal hernia, right active 2023-01-18 ProblemAct [facility] Bipolar 1 disorder active 2023-01-03 ProblemAct [facility] Fever, unspecified fever cause active EncounterDiagnosisAct [facility] COVID-19 active EncounterDiagnosisAct [facility] Immunizations Vaccine Date Source Lot Number Status Covid-19 (Moderna 12+) 100mcg/0.5mL dosage 12/29/2020 [facility] N[facility] [id number] completed Covid-19 (Moderna 12+) 100mcg/0.5mL dosage 12/01/2020 [facility] NEM[facility] [id number] completed DTP / HiB 04/08/1996 [facility] completed MMR 01/05/1996 [facility] completed Hepatitis B, Unspecified formulation 10/07/1995 [facility] completed DTP / HiB 06/26/1995 [facility] completed OPV 06/26/1995 [facility] completed DTP / HiB 04/28/1995 [facility] completed OPV 04/28/1995 [facility] completed OPV 02/23/1995 [facility] completed DTP / HiB 02/13/1995 [facility] completed Hepatitis B, Unspecified formulation 01/26/1995 [facility] completed Hepatitis B, Unspecified formulation 1994 [facility] completed Encounters Encounter Type Encounter Reason Primary Diagnosis Location Date Emergency FINGER PAIN Cellulitis of unspecified finger [facility] [place]2025 Emergency Wound check Hypertrophy of n maida turbinates [facility] 02/09/2025 Emergency Hypertension Headache [facility] 12/31/2024 Ambulatory Fever Fever [facility] 08/16/2024 Ambulatory [facility] 01/15/2024 Ambulatory Hand Injury Hand Injury [facility] 01/15/2024 Ambulatory [facility] 11/18/2023 Ambulatory Left upper quadrant pain Left upper quadrant pain [facility] 11/03/2023 Emergency Unspecified abdominal pain Unspecified abdominal pain [facility] 10/07/2023 Ambulatory Unilateral ingui nal hernia, without obstruction or gangrene, not specified as recurrent [facility] 02/08/2023 Emergency Left lower quadr ant pain [facility] 12/15/2022 Ambulatory Acute upper respiratory infection, unspecified [facility] 12/12/2022 Ambulatory Encounter for ot her general counseling and advice on contraception [facility] 11/11/2022 Ambulatory Encounter for ot her preprocedural examination [facility] 11/04/2022 Ambulatory Encounter for ot her general counseling and advice on contraception [facility] 10/25/2022 Ambulatory Contact with and (suspected) exposure to covid-19 [facility] 03/19/2022 Ambulatory Low back pain, unspecified [facility] 01/20/2022 Ambulatory Contact with and (suspected) exposure to covid-19 [facility] 12/16/2021 Care Team Organization Name Specialty Phone Email Start Date End Da te [facility] 04/02/2025 [facility] 12/31/2024 [facility] NO PHYSICIAN Primary Care 12/31/2024 [facility] 12/31/2024 [facility] 2024 [place] [facility] 12/12/2023 10/15/2024 [facility] GERTRUDE LOMAX, Primary Care 04/20/2023 [facility] 02/23/2023 10/12/2024 [facility] 02/03/2023 02/25/2025 [facility] PCP,No Primary Care 03/19/2022 10/30/2024 [facility] NO PCP Primary Care 12/16/2021 01/20/2022 [facility] RONALD JACK Primary Care
[2025-04-24 18:15] LABS: Alanine Aminotransferase 21 U/L (0-40); Albumin Level 5.0 g/dL (3.5-5.0); Alkaline Phosphatase 67 U/L (39-117); Anion Gap 14 (12-20); Aspartate Amino Transferase 26 U/L (5-37); Blood Urea Nitrogen 12 mg/dL (9-16); Calcium 9.7 mg/dL (8.4-10.2); Carbon Dioxide 27 mmol/L (22-29); Chloride 105 mmol/L (96-108); Cholesterol 221 mg/dL (<200); Estimated Glomerular Filt Rate > 60; HDL Cholesterol 49 mg/dL (>40); Potassium 4.6 mmol/L (3.3-5.1); Sodium 141 mmol/L (135-145); Total Protein 8.1 g/dL (6.5-8.0); Triglycerides 81 mg/dL (<150)
[2025-04-24 18:32] LABS: Folate 6.0 ng/mL (> or = 4.0); Vitamin B12 303 pg/mL (200-900)
[2025-04-25 08:51] LABS: HBS Num1 1.07 mIU/mL (0-7.99); HBsAGNum1 0.39 S/CO (0.00-0.99); HIV Num 1 0.04 S/CO (0.00-0.99); Hepatitis B Surface Antigen Negative (Negative); ~HepC Num1 0.08 S/CO (0.00-0.79); ~Hepatitis B Surface Antibody NONREACTIVE (Nonreactive); ~Hepatitis C Antibody Nonreactive (Nonreactive)
[2025-04-25 08:53] LABS: Syphilis Screen Nonreactive (Nonreactive)
[2025-04-30 19:09] LABS: Chlamydia Trachomatis IgA <1:16 titer (<1:16)
== END 2025-04-24 10:18 | disposition home or self-care (01) ==
LOC: HO.HKASLDS 10:17
PROVIDERS: PCP Student in an Organized Health Care Education/Training Program; Visit Provider Student in an Organized Health Care Education/Training Program
DX: Z76.89 Persons encountering health services in other specified circumstances (principal); Z01.89 Encounter for other specified special examinations; Z13.1 Encounter for screening for diabetes mellitus; Z13.220 Encounter for screening for lipoid disorders; Z13.6 Encounter for screening for cardiovascular disorders; Z71.9 Counseling, unspecified; R03.0 Elevated blood-pressure reading, without diagnosis of hypertension; E66.3 Overweight; R10.2 Pelvic and perineal pain; R10.33 Periumbilical pain; G89.29 Other chronic pain; R07.1 Chest pain on breathing; R51.9 Headache, unspecified; L30.8 Other specified dermatitis; G47.09 Other insomnia; F41.9 Anxiety disorder, unspecified; F17.210 Nicotine dependence, cigarettes, uncomplicated; F12.90 Cannabis use, unspecified, uncomplicated; Z98.52 Vasectomy status; Z87.19 Personal history of other diseases of the digestive system
CPT/HCPCS: 80053; 80061; 81001; 82043; 82570; 82607; 82746; 83036; 84443; 85025; 86631; 86632; 86706; 86780; 86803; 87340; 87389; 87491; 87591; 99202

== ENCOUNTER 2025-05-08 09:46 | Outpatient (AMB) | payer MEDICAID, SELFPAY ==
--- OUTSIDE RECORDS SUMMARY | 2024-01-15 12:18 | XMS_ITS | Encounter Summary ---
Author Organization [facility] Address [address] [place] [address] Care Team Providers Care Tactical/Mobile Watch Officer Name Role Phone Pcp, No Primary Care Provider Unavailabl e Encounter Details Date Type Department Care Team (Late st Contact Info) Description 01/15/2024 12:18 PM EDT Hospital Encounter [facility] [address] [place] [address] Renita Carcamo, CHRISTOPHER [address] [place] [address] Social History Tobacco Use Types Packs/Day Years [...] on filedocumented in this encounter Care Teams Tactical/Mobile Watch Officer Relationship Specialty Start Date End Date Pcp, No PCP - General General Medicine 11/10/22 documented as of this encounter
--- NOTE | 2025-05-08 09:50 | A.OFFPC_ITS ---
Vital Signs 05/08/25 09:52 Height 5 ft 10.24 in Weight 186 lb 6 oz BMI 26.6 BP 122/75 Blood Pressure Location Rt brachial Position Sitting Respiration 16 Pulse 77 Pulse Source Pulse Oximeter Temp 98.2 F Temp Source Oral Pulse Oximetry (%) 99 Oxygen Delivery Method Room Air Intake Visit Reasons: 2 week follow up Intake Note: pt here today for chest pain and high blood pressure. Baggage Screener Required: No Accompanied by: Self / Same As Patient Allergies No Known Allergies Allergy (Verified 05/08/25 09:50) Tobacco use date assessed: 04/24/25 Dental Screening Dental Screen Date: 04/24/25 Did you have a dental visit in the last 12 months?: Yes Did you have a dental problem in the last 6 months where you did not have access to dental care?: No Was dental information given to patient?: Patient has dentist HPI HPI Comments History of Present Illness Details History of Present Illness The patient is a 29-year-old male presenting with pelvic pain and chest pain. Pelvic pain: - The patient reports ongoing pelvic ruben n with a history of trace blood in urine, suggesting possible hematuria. - No imaging has been completed yet, but an ultrasound is planned to investigate potential causes such as kidney stones. Chest pain: - The patient has not yet completed an e lectrocardiogram or chest X-ray, although these were previously ordered. - The patient continues to experience ch est pain, impacting daily activities. Hypercholesterolemia: - Laboratory results indicate elevated c holesterol levels, with total choles terol at 221 mg/dL and LDL cholesterol at 157 mg/dL. - Dietary habits include consumption of junk food, which may contribute to elevated cholesterol levels. Hematuria: - The patient reports a history of trace blood in urine, which has been a persistent issue. - Further investigation with imaging is planned to determine the underlying cause. Review of Systems - Cardiovascular: Denies palpitations or syncope. - Gastrointestinal: Reports ongoing pelv ic pain and trace blood in urine. - Respiratory: Reports chest pain, denie s dyspnea or cough. 10-point ROS reviewed and negative excep t as noted in HPI Past Medical History Health Maintenance - Recommended dietary modifications to a ddress hypercholesterolemia, including reducing junk food intake. Physical Exam General: Well-appearing, in no acute distress. Vital signs: Blood pressure is 122/75, within normal limits. HEENT: Normocephalic, atraumatic. PERRLA, EOMI. Conjunctiva clear, sclera anicteric. Oropharynx clear, mucous membranes moist. TMs intact bilaterally. Neck: Supple, no lymphadenopathy, no thyromegaly, no JVD or carotid bruits. Cardiovascular: RRR, normal S1/S2, no murmurs, rubs, or gallops. Peripheral pulses 2+ and symmetric. No edema. Respiratory: Lungs clear to auscultation bilaterally, no wheezes, rales, or rhonchi. Normal effort. Abdomen: Soft, non-tender, non-distended. Normoactive bowel sounds. No hepa tosplenomegaly, no masses. MSK: Full range of motion, no joint swelling or deformity. Normal gait. Skin: Warm, dry, intact. No rashes, lesions, or pallor. Neuro: Alert and oriented x3. Cranial nerves II-XII intact. Strength 5/5 throughout. Sensation intact. Reflexes 2+ symmetric. Normal coordination and gait. Psych: Appropriate mood and affect. Normal judgment and insight. Plan 1. Pelvic Pain - Plan to perform an ultrasound to inves tigate potential causes such as kidney stones. 2. Chest Pain - Plan to complete an electrocardiogram and chest X-ray to evaluate the cause of chest pain. 3. Hypercholesterolemia - Recommended dietary changes to reduce cholesterol levels, including reducing intake of junk food. 4. Hematuria - Plan to perform imaging studies to det ermine the cause of hematuria. Discussion Notes I discussed with the patient the need for further diagnostic imaging to investigate the cause of pelvic pain and hematuria, including the possibility of kidney stones. We also reviewed the importance of completing the electrocardiogram and chest X-ray to assess chest pain. Dietary modifications were recommended to address elevated cholesterol levels. Patient was informed and verbally consented to the use of an ambient scribe for clinic note documentation during this visit. Patient Instructions - Schedule and complete the ultrasound t o investigate pelvic pain. - Complete the electrocardiogram and devin st X-ray as soon as possible. - Follow dietary recommendations to redu ce cholesterol levels, focusing on reducing junk food intake. [facility] Medical History (Updated 05/08/25 @ 10:04 by Neptali Paulino MD) Cannabis use disorder Visual impairment Migraine Hypertension GERD (gastroesophageal reflux disease) Bipolar 1 disorder ADHD (attention deficit hyperactivity disorder) Surgical History History of inguinal hernia repair, bilateral H/O vasectomy H/O laparoscopy Family History Father Diabetes High blood pressure Mother Diabetes High blood pressure Social History Housing: House Alcohol intake: current Alcohol intake frequency: does not drink Patient Tobacco Use Status: Current everyday Tobacco user Cigarette Packs Per Day: 1 Cigarettes Per Day: 20 Substance Use Type: Marijuana service: No Current occupational status: employed Cognitive needs: No Hearing needs: No Vision needs: Yes (rx glasses) Questionnaire PHQ-9 Over the last 2 weeks, how often have you been bothered by any of the following problems? 1. Little interest or pleasure in doing things: not at all 2. Feeling down, depressed, or hopeless: not at all 3. Trouble falling or staying asleep, or sleeping too much: not at all 4. Feeling tired or having little energy: not at all 5. Poor appetite or overeating: not at all 6. Feeling bad about yourself - or that you are a failure or have let yourself or your family down: not at all 7. Trouble concentrating on things, such as reading the newspaper or watching television: not at all 8. Moving or speaking so slowly that other people could have noticed. Or the opposite - being so fidgety or restless that you have been moving around a lot more than usual: not at all 9. Thoughts that you would be better off or of hurting yourself in some way: not at all Total score: 0 Source: Developed by Drs. Vinicius Thomas, Raquel Tiwari, Johnathon Lagos and colleagues, with an educational kim from [employer]. Thrive Questionnaire Date Thrive assessed: 04/24/25 I am a: Patient What is your living situation today?: I have a steady place to live Within the past 12 months, did the food you bought not last and you didn't have the money to get more?: Never true Do you have trouble paying for medicines?: No Do you have trouble getting transportation to medical appointments?: No Do you have trouble paying your heating and electricity bill?: No Do you have trouble taking care of your child, family member or friend?: No Do you have trouble with day-to-day activities such as bathing, preparing meals, shopping, managing finances, etc.?: No Are you currently unemployed and looking for a job?: No Are you interested in more education?: No Please select the resources that you would like help with: None Currently or been in a relationship where the following occur: No concerns reported THRIVE Score: 0 AUDIT C Alcohol Use Questionnaire (AUDIT-C) 1. How often do you have a drink containing alcohol?: Never 3. How often do you have six or more drinks on one occasion?: Never Total Score: 0 ARIANNE-7 AMB Questionnaire ARIANNE-7 Date ARIANNE - 7 assessed: 04/24/25 Feeling nervous, anxious, or on edge: 3 = Nearly every day Not being able to stop or control worryin = Nearly every day Worrying too much about different things: 3 = Nearly every day Trouble relaxin = Nearly every day Being so restless that it is hard to sit still: 2 = More than half the days Becoming easily annoyed or irritable: 2 = More than half the days Feeling afraid as if something awful might happen: 3 = Nearly every day Total ARIANNE-7 score (0-4 normal; 5-9 mild; 10-14 moderate; 15-21 severe): 19 Source: Developed by Drs. Vinicius Thomas, Raquel Tiwari, Johnathon Lagos and colleagues, with an educational kim from [employer]. Physical exam (Primary Care) Vital Signs: Last Vital Signs Resp 16 05/08/25 09:52 Tobacco/Smoking Status: Tobacco use Status Tobacco use date assessed 04/24/25 05/08/25 09:51 Patient Tobacco Use Status Current everyday Tobacco 05/08/25 09:51 PHQ-9: PHQ-9 Score PHQ-9: Total score 0 05/08/25 09:51 Thrive Assessment: Date of Thrive Assessment Date Thrive assessed 04/24/25 05/08/25 09:51 Currently or been in a relationship where the following occur: No concerns reported Coding Level of Care Code Est Pt Level 3 (89387) Diagnoses Encounter to discuss test results Z71.2 Dyslipidemia E78.5 Blood in urine R31.9 Adjustment disorder with anxiety F43.22 Overweight with body mass index (BMI) 25.0-29.9 E66.3 Cannabis use disorder F12.90 Assessment & Plan Assessment & Plan (1) Encounter to discuss test results: Code(s): Z71.2 - Person consulting for explanation of examination or test findings (2) Dyslipidemia: Code(s): E78.5 - Hyperlipidemia, unspecified (3) Blood in urine: Code(s): R31.9 - Hematuria, unspecified (4) Adjustment disorder with anxiety: Code(s): F43.22 - Adjustment disorder with anxiety (5) Overweight with body mass index (BMI) 25.0-29.9: Code(s): E66.3 - Overweight (6) Cannabis use disorder: Code(s): F12.90 - Cannabis use, unspecified, uncomplicated Category: Medical Plan Orders: Orders US retroperitoneal comp Today R31.9 - Hematuria, unspecified Patient Instructions:
[2025-05-08 09:52] VITALS: BP 122/75; PULSE 77; RESP 16; TEMP 36.8; O2SAT 99; BMI 26.6
--- OUTSIDE RECORDS SUMMARY | 2025-05-08 11:39 | XMS_ITS | Clinical Summary ---
Author Organization [facility] Address [address] [place] [address] Care Team Providers Care Photo Finisher Name Role Phone Pcp, No Primary Care [...] (3 - 2024- season) 2025, 12/01/2020 Insurance [facility] MEDICARE PART A & B [place] [id number] MEDICARE PART A & B [facility] Care Teams Photo Finisher Relationship Specialty Start Date End Date Pcp, No PCP - General General Medicine 11/10/22
--- OUTSIDE RECORDS SUMMARY | 2025-05-08 11:39 | XMS_ITS | Patient Health Record ---
Author Organization [facility] Address [address] [place] [address] Care Team Providers Care Pot Filler Name Role Phone Claudio Palmira Primary Care Provider Reason For Referral No Information Social History [...] W/U Status Risk Notes Problem Mixed hyperlipidemia (216173523) Mixed hyperlipidemia (E78.2) Active confirmed Problem Essential hypertension (06538735) Essential hypertension (I10) Active confirmed Problem Obesity (514836780) Obesity, Class I, BMI 30-34.9 (E66.9) Active confirmed Plan Of Treatment Pending Test Test Name Order Date CHLAMYDIA/N. GONORRHOEAE DNA, SDA 2017 Insurance Providers Payer Name Payer Address Payer Phone Subscriber Number Group Number Insured Name Patient Relationship to Insured Coverage Start Date Coverage End Date Medicare A NGS PPS UB [address] [place], [place] [id number] Macho Arambula Self - patient is the insured [facility] A SECONDARY [address] [place], [place] [id number] Macho Arambula Self - patient is the insured Medical (General) History Medical History History ICD Code Bipolar Disorder ADHD Obesity class I Hyperlipidemia Htn Surgical History Surgery Date(Month/Year)
--- OUTSIDE RECORDS SUMMARY | 2025-05-08 11:39 | XMS_ITS | Clinical Summary ---
Author Organization [facility] Address [address] [place] [address] Phone Care Team Providers Care Transport Conductor Name Role Phone Physician, No Pcp Primary [...] EDT - 03/07/2025 3:32 PM EDT Emergency [facility] Emergency [address] [place] [address] Paronychia of finger, unspecified laterality (Primary Dx) Discharge Disposition: Home or Self Care 02/09/2025 10:48 AM EDT - 02/09/2025 12:09 PM EDT Emergency [facility] Emergency [address] [place] [address] Nasal turbinate hypertrophy (Primary Dx) Discharge Disposition: Home or Self Care from Last 3 Months Surgical History Surgery Date Site/Laterality Comments VASECTOMY PROCEDURE:VASECTOMY HERNIA REPAIR 02/08/2023 Bilateral PROCEDURE:INGUINAL HERNIA REPAIR;COMMENT:Procedure: LAPAROSCOPY REPAIR HERNIA INGUINAL; Surgeon: Anthony Wharton MD; Location: [facility] AM[facility]ERY; Service: General; Laterality: Bilateral; THIS IS A 90 MIN CASE Medical History Medical History Date Comments ADHD (attention deficit hype ractivity disorder) DX:ADHD (attention deficit h yperactivity disorder) Bipolar 1 disorder (CMS/HCC V24, CMS/HCC V28) DX:Bipolar 1 disorder ([facility]) Migraine DX:Migraine GERD (gastroesophageal reflux disease) DX:GERD [...] this topic Medical Devices Implanted Type Area Rd Manager Device Identifier Shelf Expiration Date Model / Serial / Lot Mesh 3d Max 4.3x6.3 Rt Lrg Dimensional Prefrm Rt Ster No Crba-Davl [id number] Implanted:Qty: 1 on 02/08/2023 by Anthony Wharton MD Right: Inguinal CR BARD [employer] 07/11/2027 [id number] / / [id number] Mesh 3d Max 4.3x6.3 Lft Lrg Dimensional Prefrm Lft Ster N Crba-Davl [id number] Implanted:Qty: 1 on 02/08/2023 by Anthony Wharton MD Right: Inguinal CR BARD - [employer] 06/10/2027 [id number] / / [id number] Procedures Procedure Name Priority Date/Time Associated Diagnosis Comments COMPREHENSIVE METABOLIC PANEL STAT 12/31/2024 12:32 PM EDT from Last 3 Months or Most Recently Relevant to Health Maintenance Results * (ABNORMAL) Comprehensive Metabolic Panel (CMP) (12/31/2024 12:32 PM EDT) Sodium 139 135 - 145 mmol/L LAB CHEMISTRY METHOD 12/31/2024 1:12 PM EDT [facility] Potassium 3.7 3.5 - 5.1 mmol/L LAB CHEMISTRY METHOD 12/31/2024 1:12 PM EDT [facility] Chloride 103 98 - 107 mmol/L LAB CHEMISTRY METHOD 12/31/2024 1:12 PM EDT [facility] CO2 27 24 - 32 mmol/L LAB CHEMISTRY METHOD 12/31/2024 1:12 PM EDT [facility] Anion Gap 9 5 - 14 LAB CHEMISTRY METHOD 12/31/2024 1:12 PM EDT [facility] Glucose 95 70 - 199 mg/dL LAB CHEMISTRY METHOD 12/31/2024 1:12 PM EDT [facility] BUN 11 9 - 20 mg/dL LAB CHEMISTRY METHOD 12/31/2024 1:12 PM EDT [facility] Creatinine 0.70 0.70 - 1.30 mg/dL LAB CHEMISTRY METHOD 12/31/2024 1:12 PM EDT [facility] eGFR 127 >=60 mL/min/1. 73m2 LAB CHEMISTRY METHOD 12/31/2024 1:12 PM EDT [facility] Comment:Calculation based on the Chronic Kidney Disease Epidemiology Collaboration (CKD-EPI) equation refit without adjustment for race. BUN/Creatinine Ratio 15.7 12.0 - 20.0 LAB CHEMISTRY METHOD 12/31/2024 1:12 PM EDT [facility] Calcium 9.5 8.4 - 10.2 mg/dL LAB CHEMISTRY METHOD 12/31/2024 1:12 PM EDT [facility] AST (SGOT) 18 5 - 40 unit/L LAB CHEMISTRY METHOD 12/31/2024 1:12 PM EDT [facility] ALT (SGPT) 20 7 - 52 unit/L LAB CHEMISTRY METHOD 12/31/2024 1:12 PM EDT [facility] Alkaline Phosphatase 57 34 - 104 unit/L LAB CHEMISTRY METHOD 12/31/2024 1:12 PM EDT [facility] Total Protein 7.3 6.4 - 8.5 g/dL LAB CHEMISTRY METHOD 12/31/2024 1:12 PM EDT [facility] Albumin 4.6 3.5 - 5.0 g/dL LAB CHEMISTRY METHOD 12/31/2024 1:12 PM EDT [facility] Total Bilirubin 1.1(H) 0.3 - 1.0 mg/dL LAB CHEMISTRY METHOD 12/31/2024 1:12 PM EDT [facility] Blood Venous blood specimen / Unknown Venipuncture / Unknown 12/31/2024 12:32 PM EDT 12/31/2024 12:37 PM EDT us Yusuf Mckay NP LAB BLOOD ORDERABLES Final Res ult [facility] [address] [place] [address], [place] [phone] from Last 3 Months or Most Recently Relevant to Health Maintenance Insurance [place] MEDICARE [place]ICA[place] - [place] Care Teams Transport Conductor Relationship Specialty Start Date End Date Physician, No Pcp PCP - General 12/31/24
--- OUTSIDE RECORDS SUMMARY | 2025-05-08 11:39 | XMS_ITS | Clinical Summary ---
Author Organization [facility] Address [address] [place] [address] Care Team Providers Care Compliance And Control Analyst Name Role Phone Coleen Norman MD Primary [...] this topic Medical Devices Implanted Type Area Test Fixture Assembler Device Identifier Shelf Expiration Date Model / Serial / Lot Mesh 3d Max 4.3x6.3 Rt Lrg Dimensional Prefrm Rt Ster No Crba-Davl [id number] - [id number] Implanted:Qty: 1 on 02/08/2023 by Anthony Wharton MD at [facility] and Med Right: Inguinal CR BARD - [employer] DIV 07/11/2027 [id number] / / [id number] Mesh 3d Max 4.3x6.3 Lft Lrg Dimensional Prefrm Lft Ster N Crba-Davl [id number] - [id number] Implanted:Qty: 1 on 02/08/2023 by Anthony Wharton MD at [facility] and [facility] Right: Inguinal CR BARD - [employer] DIV 06/10/2027 [id number] / / [id number] Care Teams Compliance And Control Analyst Relationship Specialty Start Date End Date Coleen Norman MD PCP - General 02/07/24
== END 2025-05-08 10:48 | disposition home or self-care (01) ==
LOC: HO.HMCFMS 09:46
PROVIDERS: PCP Student in an Organized Health Care Education/Training Program; Visit Provider Student in an Organized Health Care Education/Training Program
DX: E78.5 Hyperlipidemia, unspecified (principal); R31.9 Hematuria, unspecified; F43.22 Adjustment disorder with anxiety; E66.3 Overweight; Z68.26 Body mass index [BMI] 26.0-26.9, adult; F12.90 Cannabis use, unspecified, uncomplicated

== ENCOUNTER → 2025-05-08 09:46 | Outpatient (BNVA) | payer MEDICAID, SELFPAY | PROVIDERS: PCP Student in an Organized Health Care Education/Training Program; Visit Provider Student in an Organized Health Care Education/Training Program | DX: Z71.2 Person consulting for explanation of examination or test findings (principal); E78.5 Hyperlipidemia, unspecified; R31.9 Hematuria, unspecified; F43.22 Adjustment disorder with anxiety; E66.3 Overweight; F12.90 Cannabis use, unspecified, uncomplicated | CPT/HCPCS: 99212 ==

== ENCOUNTER 2025-05-09 07:06 | Outpatient (REF) | payer MEDICAID, SELFPAY ==
--- OUTSIDE RECORDS SUMMARY | 2024-01-15 12:18 | XMS_ITS | Encounter Summary ---
Author Organization [facility] Address [address] [place] [address] Care Team Providers Care Environmental Projects Advisor Name Role Phone Pcp, No Primary Care Provider Unavailabl e Encounter Details Date Type Department Care Team (Late st Contact Info) Description 01/15/2024 12:18 PM EDT Hospital Encounter [facility] [address] [place] [address] Renita Carcamo, CHRISTOPHER [address] [place] [address] Social History Tobacco Use Types Packs/Day Years [...] on filedocumented in this encounter Care Teams Environmental Projects Advisor Relationship Specialty Start Date End Date Pcp, No PCP - General General Medicine 11/10/22 documented as of this encounter
--- NOTE | ~2025-05-09 | US_ITS ---
EXAMINATION: US RETROPERITONEUM HISTORY: R31.9 - Hematuria, unspecified TECHNIQUE: Real-time grayscale ultrasound imaging of the kidneys was performed and images were reviewed. COMPARISON: There are no prior studies available for comparison. FINDINGS: Right kidney: The right kidney measures 11.1 x 4.4 x 5.4 cm. Renal parenchymal echotexture and thickness are normal. There are no masses. There is no hydronephrosis or renal calculi. Left Kidney: The left kidney measures 10.3 x 5.9 x 5.3 cm. Renal parenchymal echotexture and thickness are normal. There are no masses. There is no hydronephrosis or renal calculi. The urinary bladder is unremarkable. Bilateral ureteral jets are identified. Before voiding, the urinary bladder measured 12.9 x 9.7 x 11.2 cm, for an estimated volume of 729 mL. After voiding, the urinary bladder measured 6.5 x 7.3 x 8.4 cm, for an estimated volume of 203 mL. The prostate measures 3.1 x 2.5 x 4.2 cm, for an estimated volume of 17.1 mL. US/US retroperitoneal comp IMPRESSION: 1. Unremarkable retroperitoneal ultrasound. 2. Post void bladder residual of 203 mL. 3. Prostate volume of 17.1 mL. Electronically signed by: Vinicius Milligan MD 05/09/2025 07:59 AM EDT
--- OUTSIDE RECORDS SUMMARY | 2025-05-09 07:12 | XMS_ITS | Patient Health Record ---
Author Organization [facility] Address [address] [place] [address] Care Team Providers Care Fire Prevention Research Engineer Name Role Phone Claudio Palmira Primary [...] W/U Status Risk Notes Problem Mixed hyperlipidemia (839785708) Mixed hyperlipidemia (E78.2) Active confirmed Problem Essential hypertension (92787182) Essential hypertension (I10) Active confirmed Problem Obesity (272599691) Obesity, Class I, BMI 30-34.9 (E66.9) Active confirmed Plan Of Treatment Pending Test Test Name Order Date CHLAMYDIA/N. GONORRHOEAE DNA, SDA 2017 Insurance Providers Payer Name Payer Address Payer Phone Subscriber Number Group Number Insured Name Patient Relationship to Insured Coverage Start Date Coverage End Date Medicare A NGS PPS UB [address] [place], [place] [id number] Macho Arambula Self - patient is the insured [facility] A SECONDARY [address] [place], [place] [id number] Macho Arambula Self - patient is the insured Medical (General) History Medical History History ICD Code Bipolar Disorder ADHD Obesity class I Hyperlipidemia Htn Surgical History Surgery Date(Month/Year)
--- OUTSIDE RECORDS SUMMARY | 2025-05-09 07:12 | XMS_ITS | Clinical Summary ---
Author Organization [facility] Address [address] [place] [address] Care Team Providers Care Manager Center Name Role Phone Pcp, No Primary Care [...] (3 - 2024- season) 2025, 12/01/2020 Insurance [facility] MEDICARE PART A & B [place] [id number] MEDICARE PART A & B [facility] Care Teams Manager Center Relationship Specialty Start Date End Date Pcp, No PCP - General General Medicine 11/10/22
--- OUTSIDE RECORDS SUMMARY | 2025-05-09 07:12 | XMS_ITS | Clinical Summary ---
Author Organization [facility] Address [address] [place] [address] Care Team Providers Care Programmer Analyst Consultant Name Role Phone Coleen Norman MD Primary [...] this topic Medical Devices Implanted Type Area Roller Operator Device Identifier Shelf Expiration Date Model / Serial / Lot Mesh 3d Max 4.3x6.3 Rt Lrg Dimensional Prefrm Rt Ster No Crba-Davl [id number] - [id number] Implanted:Qty: 1 on 02/08/2023 by Anthony Wharton MD at [facility] and Med Right: Inguinal CR BARD - [employer] 07/11/2027 [id number] / / [id number] Mesh 3d Max 4.3x6.3 Lft Lrg Dimensional Prefrm Lft Ster N Crba-Davl [id number] - [id number] Implanted:Qty: 1 on 02/08/2023 by Anthony Wharton MD at [facility] and [facility] Right: Inguinal CR BARD - [employer] 06/10/2027 [id number] / / [id number] Care Teams Programmer Analyst Consultant Relationship Specialty Start Date End Date Coleen Norman MD PCP - General 02/07/24
--- OUTSIDE RECORDS SUMMARY | 2025-05-09 07:12 | XMS_ITS | Clinical Summary ---
Author Organization [facility] Address [address] [place] [address] Phone Care Team Providers Care Respite Coordinator Name Role Phone Physician, No Pcp Primary [...] EDT - 03/07/2025 3:32 PM EDT Emergency [facility] [address] [place] [address] Paronychia of finger, unspecified laterality (Primary Dx) Discharge Disposition: Home or Self Care 02/09/2025 10:48 AM EDT - 02/09/2025 12:09 PM EDT Emergency [facility] [address] [place] [address] Nasal turbinate hypertrophy (Primary Dx) Discharge Disposition: Home or Self Care from Last 3 Months Surgical History Surgery Date Site/Laterality Comments VASECTOMY PROCEDURE:VASECTOMY HERNIA REPAIR 02/08/2023 Bilateral PROCEDURE:INGUINAL HERNIA REPAIR;COMMENT:Procedure: LAPAROSCOPY REPAIR HERNIA INGUINAL; Surgeon: Anthony Wharton MD; Location: [facility]; Service: General; Laterality: Bilateral; THIS IS A 90 MIN CASE Medical History Medical History Date Comments ADHD (attention deficit hype ractivity disorder) DX:ADHD (attention deficit h yperactivity disorder) Bipolar 1 disorder (CMS/HCC V24, CMS/HCC V28) DX:Bipolar 1 disorder ([facility]) Migraine DX:Migraine GERD (gastroesophageal reflux disease) DX:GERD [...] this topic Medical Devices Implanted Type Area Transmission Tester Device Identifier Shelf Expiration Date Model / Serial / Lot Mesh 3d Max 4.3x6.3 Rt Lrg Dimensional Prefrm Rt Ster No Crba-Davl [id number] Implanted:Qty: 1 on 02/08/2023 by Anthony Wharton MD Right: Inguinal CR BARD - DAVOL DIV 07/11/2027 [id number] / / [id number] Mesh 3d Max 4.3x6.3 Lft Lrg Dimensional Prefrm Lft Ster N Crba-Davl [id number] Implanted:Qty: 1 on 02/08/2023 by Anthony Wharton MD Right: Inguinal CR BARD - DAVOL DIV 06/10/2027 [id number] / / [id number] Procedures Procedure Name Priority Date/Time Associated Diagnosis Comments COMPREHENSIVE METABOLIC PANEL STAT 12/31/2024 12:32 PM EDT from Last 3 Months or Most Recently Relevant to Health Maintenance Results * (ABNORMAL) Comprehensive Metabolic Panel (CMP) (12/31/2024 12:32 PM EDT) Sodium 139 135 - 145 mmol/L LAB CHEMISTRY METHOD 12/31/2024 1:12 PM EDT [facility] Potassium 3.7 3.5 - 5.1 mmol/L LAB CHEMISTRY METHOD 12/31/2024 1:12 PM EDT [facility] Chloride 103 98 - 107 mmol/L LAB CHEMISTRY METHOD 12/31/2024 1:12 PM EDT [facility] CO2 27 24 - 32 mmol/L LAB CHEMISTRY METHOD 12/31/2024 1:12 PM EDT [facility] Anion Gap 9 5 - 14 LAB CHEMISTRY METHOD 12/31/2024 1:12 PM EDT [facility] Glucose 95 70 - 199 mg/dL LAB CHEMISTRY METHOD 12/31/2024 1:12 PM EDT [facility] BUN 11 9 - 20 mg/dL LAB CHEMISTRY METHOD 12/31/2024 1:12 PM EDT [facility] Creatinine 0.70 0.70 - 1.30 mg/dL LAB CHEMISTRY METHOD 12/31/2024 1:12 PM EDT [facility] eGFR 127 >=60 mL/min/1. 73m2 LAB CHEMISTRY METHOD 12/31/2024 1:12 PM EDT [facility] Comment:Calculation based on the Chronic Kidney Disease Epidemiology Collaboration (CKD-EPI) equation refit without adjustment for race. BUN/Creatinine Ratio 15.7 12.0 - 20.0 LAB CHEMISTRY METHOD 12/31/2024 1:12 PM EDT [facility] Calcium 9.5 8.4 - 10.2 mg/dL LAB CHEMISTRY METHOD 12/31/2024 1:12 PM EDT [facility] AST (SGOT) 18 5 - 40 unit/L LAB CHEMISTRY METHOD 12/31/2024 1:12 PM EDT [facility] ALT (SGPT) 20 7 - 52 unit/L LAB CHEMISTRY METHOD 12/31/2024 1:12 PM EDT [facility] Alkaline Phosphatase 57 34 - 104 unit/L LAB CHEMISTRY METHOD 12/31/2024 1:12 PM EDT [facility] Total Protein 7.3 6.4 - 8.5 g/dL LAB CHEMISTRY METHOD 12/31/2024 1:12 PM EDT [facility] Albumin 4.6 3.5 - 5.0 g/dL LAB CHEMISTRY METHOD 12/31/2024 1:12 PM EDT [facility] Total Bilirubin 1.1(H) 0.3 - 1.0 mg/dL LAB CHEMISTRY METHOD 12/31/2024 1:12 PM EDT [facility] Blood Venous blood specimen / Unknown Venipuncture / Unknown 12/31/2024 12:32 PM EDT 12/31/2024 12:37 PM EDT us Yusuf Mckay NP LAB BLOOD ORDERABLES Final Res ult [facility] [address] [place] [address], [place] [phone] from Last 3 Months or Most Recently Relevant to Health Maintenance Insurance [place] - [place] MEDICARE [place]ICA[place] - [place] Care Teams Respite Coordinator Relationship Specialty Start Date End Date Physician, No Pcp PCP - General 12/31/24
== END 2025-05-09 07:07 | disposition home or self-care (01) ==
LOC: HO.US 07:06
PROVIDERS: PCP Student in an Organized Health Care Education/Training Program; Visit Provider Student in an Organized Health Care Education/Training Program
DX: R31.9 Hematuria, unspecified (principal)
CPT/HCPCS: 76770

== ENCOUNTER → 2025-05-09 07:10 | Outpatient (BNV) | payer MEDICAID, SELFPAY | PROVIDERS: PCP Student in an Organized Health Care Education/Training Program; Visit Provider Radiology Diagnostic Radiology | DX: R39.15 Urgency of urination (principal); R31.9 Hematuria, unspecified | CPT/HCPCS: 76770 ==

== ENCOUNTER 2025-05-16 09:18 | Outpatient (AMB) | payer MEDICAID, SELFPAY ==
--- OUTSIDE RECORDS SUMMARY | 2024-01-15 12:18 | XMS_ITS | Encounter Summary ---
Author Organization [facility] Address [address] [place] [address] Care Team Providers Care Gravity Prospector Name Role Phone Pcp, No Primary Care Provider Unavailabl e Encounter Details Date Type Department Care Team (Late st Contact Info) Description 01/15/2024 12:18 PM EDT Hospital Encounter [facility] [address] [place] [address] Renita Carcamo, CHRISTOPHER [address] [place] [address] Social History Tobacco Use Types Packs/Day Years [...] on filedocumented in this encounter Care Teams Gravity Prospector Relationship Specialty Start Date End Date Pcp, No PCP - General General Medicine 11/10/22 documented as of this encounter
--- NOTE | 2025-05-16 09:22 | MHC.PC.OV ---
Vital Signs 05/16/25 09:23 Height 5 ft 10.24 in Weight 187 lb 4 oz BMI 26.7 BP 141/85 H Blood Pressure Location Rt brachial Position Sitting Respiration 16 Pulse 81 Pulse Source Pulse Oximeter Temp 97.4 F Temp Source Oral Pulse Oximetry (%) 99 Oxygen Delivery Method Room Air Intake Visit Reasons: f/u hernia pain Intake Note: pt here today for chest pain and high blood pressure. Inspector Hairspring Truing Required: No Accompanied by: Self / Same As Patient Allergies No Known Allergies Allergy (Verified 05/16/25 09:22) Tobacco use date assessed: 04/24/25 Dental Screening Dental Screen Date: 04/24/25 Did you have a dental visit in the last 12 months?: Yes Did you have a dental problem in the last 6 months where you did not have access to dental care?: No Was dental information given to patient?: Patient has dentist HPI HPI Comments History of Present Illness Details History of Present Illness The patient is a 29-year-old male presenting with bilateral inguinal and umbilical pain. Bilateral inguinal hernia: - The patient reports bilateral inguinal pain, primarily on the right side, which is exacerbated by lifting heavy objects. - He has a history of inguinal hernia surgery with mesh placement, and he suspects the mesh may have moved or broken. - The pain has been persistent, leading to difficulty in performing daily activities and work-related tasks. Umbilical hernia: - The patient experiences umbilical pain, feeling as if his belly button is protruding, especially when bending over or lifting. - This pain has been severe enough to cause him to drop objects and avoid work. Hypertension: - The patient has a history of hypertension, with a recent blood pressure reading of 141/85 mmHg, which is elevated compared to his previous reading of 122/75 mmHg. - He attributes the increase in blood pressure to work-related stress. Review of Systems - Gastrointestinal: Reports bilateral inguinal and umbilical pain, exacerbated by lifting. - Cardiovascular: Reports elevated blood pressure associated with work stress. 10-point ROS reviewed and negative except as noted in HPI Past Medical History - History of inguinal hernia surgery with mesh placement - Hypertension Health Maintenance Physical Exam General: Well-appearing, in no acute distress. Vital signs: Blood pressure elevated at 141/85. HEENT: Normocephalic, atraumatic. PERRLA, EOMI. Conjunctiva clear, sclera anicteric. Oropharynx clear, mucous membranes moist. TMs intact bilaterally. Neck: Supple, no lymphadenopathy, no thyromegaly, no JVD or carotid bruits. Cardiovascular: RRR, normal S1/S2, no murmurs, rubs, or gallops. Peripheral pulses 2+ and symmetric. No edema. Respiratory: Lungs clear to auscultation bilaterally, no wheezes, rales, or rhonchi. Normal effort. Abdomen: Soft, non-tender, non-distended. Normoactive bowel sounds. No hepatosplenomegaly, no masses. Reports bilateral inguinal pain, mainly on the right side, and umbilical pain. MSK: Full range of motion, no joint swelling or deformity. Normal gait. Skin: Warm, dry, intact. No rashes, lesions, or pallor. Neuro: Alert and oriented x3. Cranial nerves II-XII intact. Strength 5/5 throughout. Sensation intact. Reflexes 2+ symmetric. Normal coordination and gait. Psych: Appropriate mood and affect. Normal judgment and insight. Plan 1. Bilateral Inguinal Hernia - The patient will be referred to a general surgeon for evaluation of potential mesh displacement or failure. - A CT scan will be ordered to assess the current status of the hernia and mesh. 2. Umbilical Hernia - A CT scan will be performed to evaluate the umbilical hernia and determine the need for surgical intervention. 3. Hypertension - The patient is advised to monitor blood pressure twice daily and record the readings. - A follow-up appointment is scheduled in two weeks to review blood pressure readings and adjust management as necessary. Discussion Notes I discussed with the patient the need for a CT scan to evaluate the status of his inguinal and umbilical hernias. We also talked about the importance of monitoring his blood pressure regularly due to his hypertension. I recommended a follow-up with a general surgeon to assess the need for any surgical intervention. We agreed on a follow-up appointment in two weeks to review his blood pressure readings and discuss further management. Patient was informed and verbally consented to the use of an ambient scribe for clinic note documentation during this visit. Patient Instructions - Monitor your blood pressure twice daily and record the readings. - Attend the follow-up appointment in two weeks to review your blood pressure readings. - Await contact from the general surgery department for further evaluation of your hernias. Total time spent caring for the patient today was 45minutes. This includes time spent before the visit reviewing the chart, time spent documenting, and time spent reviewing laboratory results, diagnostic imaging, medications, performing a medically ?necessary evaluation, counseling on diagnoses, care coordination, ordering appropriate tests, ordering appropriate medications, review of tests performed by other providers, reporting test results with the patient, communication with other healthcare providers. [facility] Medical History (Updated 05/16/25 @ 17:07 by Neptali Paulino MD) Umbilical pain Inguinal pain Cannabis use disorder Visual impairment Migraine Hypertension GERD (gastroesophageal reflux disease) Bipolar 1 disorder ADHD (attention deficit hyperactivity disorder) Surgical History (Updated 05/16/25 @ 09:51 by Neptali Paulino MD) History of inguinal hernia repair History of inguinal hernia repair, bilateral H/O vasectomy H/O laparoscopy Family History Father Diabetes High blood pressure Mother Diabetes High blood pressure Social History Housing: House Alcohol intake: current Alcohol intake frequency: does not drink Patient Tobacco Use Status: Current everyday Tobacco user Cigarette Packs Per Day: 1 Cigarettes Per Day: 20 Substance Use Type: Marijuana service: No Current occupational status: employed Cognitive needs: No Hearing needs: No Vision needs: Yes (rx glasses) Questionnaire PHQ-9 Over the last 2 weeks, how often have you been bothered by any of the following problems? 1. Little interest or pleasure in doing things: not at all 2. Feeling down, depressed, or hopeless: not at all 3. Trouble falling or staying asleep, or sleeping too much: not at all 4. Feeling tired or having little energy: not at all 5. Poor appetite or overeating: not at all 6. Feeling bad about yourself - or that you are a failure or have let yourself or your family down: not at all 7. Trouble concentrating on things, such as reading the newspaper or watching television: not at all 8. Moving or speaking so slowly that other people could have noticed. Or the opposite - being so fidgety or restless that you have been moving around a lot more than usual: not at all 9. Thoughts that you would be better off or of hurting yourself in some way: not at all Total score: 0 Source: Developed by Drs. Vinicius Thomas, Raquel Tiwari, Johnathon Lagos and colleagues, with an educational kim from [employer]. Thrive Questionnaire Date Thrive assessed: 04/24/25 I am a: Patient What is your living situation today?: I have a steady place to live Within the past 12 months, did the food you bought not last and you didn't have the money to get more?: Never true Do you have trouble paying for medicines?: No Do you have trouble getting transportation to medical appointments?: No Do you have trouble paying your heating and electricity bill?: No Do you have trouble taking care of your child, family member or friend?: No Do you have trouble with day-to-day activities such as bathing, preparing meals, shopping, managing finances, etc.?: No Are you currently unemployed and looking for a job?: No Are you interested in more education?: No Please select the resources that you would like help with: None Currently or been in a relationship where the following occur: No concerns reported THRIVE Score: 0 AUDIT C Alcohol Use Questionnaire (AUDIT-C) 1. How often do you have a drink containing alcohol?: Never 3. How often do you have six or more drinks on one occasion?: Never Total Score: 0 ARIANNE-7 AMB Questionnaire ARIANNE-7 Date ARIANNE - 7 assessed: 04/24/25 Feeling nervous, anxious, or on edge: 3 = Nearly every day Not being able to stop or control worryin = Nearly every day Worrying too much about different things: 3 = Nearly every day Trouble relaxin = Nearly every day Being so restless that it is hard to sit still: 2 = More than half the days Becoming easily annoyed or irritable: 2 = More than half the days Feeling afraid as if something awful might happen: 3 = Nearly every day Total ARIANNE-7 score (0-4 normal; 5-9 mild; 10-14 moderate; 15-21 severe): 19 Source: Developed by Drs. Vinicius Thomas, Johnathon Wilkinson and colleagues, with an educational kim from [employer]. Physical exam (Primary Care) Vital Signs: Last Vital Signs Temp 97.4 F 05/16/25 09:23 Pulse 81 05/16/25 09:23 Resp 16 05/16/25 09:23 BP 141/85 H 05/16/25 09:23 Pulse Ox 99 05/16/25 09:23 Oxygen Delivery Method Room Air 05/16/25 09:23 BMI result Body Mass Index 26.7 Tobacco/Smoking Status: Tobacco use Status Tobacco use date assessed 04/24/25 05/16/25 09:28 Patient Tobacco Use Status Current everyday Tobacco 05/16/25 09:28 PHQ-9: PHQ-9 Score PHQ-9: Total score 0 05/16/25 11:17 Thrive Assessment: Date of Thrive Assessment Date Thrive assessed 04/24/25 05/16/25 09:28 Currently or been in a relationship where the following occur: No concerns reported Coding Level of Care Code Est Pt Level 3 (50332) Diagnoses Right inguinal pain R10.31 Laterality: right Umbilical pain R10.33 History of inguinal hernia repair Z98.890; Z87.19 Primary hypertension I10 Hypertension type: primary hypertension Cannabis use disorder F12.90 Assessment & Plan Assessment & Plan (1) Inguinal pain: Code(s): R10.30 - Lower abdominal pain, unspecified Category: Medical Qualifiers: Laterality: right Qualified Code(s): R10.31 - Right lower quadrant pain (2) Umbilical pain: Code(s): R10.33 - Periumbilical pain Category: Medical (3) History of inguinal hernia repair: Code(s): Z98.890 - Other specified postprocedural states; Z87.19 - Personal history of other diseases of the digestive system Category: Medical (4) Hypertension: Code(s): I10 - Essential (primary) hypertension Qualifiers: Hypertension type: primary hypertension Qualified Code(s): I10 - Essential (primary) hypertension (5) Cannabis use disorder: Code(s): F12.90 - Cannabis use, unspecified, uncomplicated Category: Medical Plan Orders: Orders CT abdomen pelvis wo IV con Today R10.30 - Lower abdominal pain, unspecified, R10.33 - Periumbilical pain, Z87.19 - Personal history of other diseases of the digestive system, Z98.890 - Other specified postprocedural states Referrals General Surgery Referral R10.30 - Lower abdominal pain, unspecified, R10.33 - Periumbilical pain, Z87.19 - Personal history of other diseases of the digestive system, Z98.890 - Other specified postprocedural states
[2025-05-16 09:23] VITALS: BP 141/85; PULSE 81; RESP 16; TEMP 36.3; O2SAT 99; BMI 26.7
--- OUTSIDE RECORDS SUMMARY | 2025-05-16 09:47 | XMS_ITS | Clinical Summary ---
Author Organization [facility] Address [address] [place] [address] Care Team Providers Care Structural Iron Worker Name Role Phone Coleen [place] MD Primary [...] this topic Medical Devices Implanted Type Area Hand Almond Blancher Device Identifier Shelf Expiration Date Model / Serial / Lot Mesh 3d Max 4.3x6.3 Rt Lrg Dimensional Prefrm Rt Ster No Crba-Davl [id number] - [id number] Implanted:Qty: 1 on 02/08/2023 by Anthony Wharton MD at [facility] Right: Inguinal CR BARD - DAVOL DIV 07/11/2027 [id number] / / [id number] Mesh 3d Max 4.3x6.3 Lft Lrg Dimensional Prefrm Lft Ster N Crba-Davl [id number] - [id number] Implanted:Qty: 1 on 02/08/2023 by Anthony Wharton MD at [facility] Right: Inguinal CR BARD - DAVOL DIV 06/10/2027 [id number] / / [id number] Care Teams Structural Iron Worker Relationship Specialty Start Date End Date Coleen [place] MD PCP - General 02/07/24
--- OUTSIDE RECORDS SUMMARY | 2025-05-16 09:48 | XMS_ITS | Clinical Summary ---
Author Organization [facility] Address [address] [place] [address] Phone Care Team Providers Care Instrumentation Technician Name Role Phone Physician, No Pcp Primary [...] EDT - 03/07/2025 3:32 PM EDT Emergency [facility] Emergency [address] [place] [address] Paronychia of finger, unspecified laterality (Primary Dx) Discharge Disposition: Home or Self Care from Last 3 Months Surgical History Surgery Date Site/Laterality Comments VASECTOMY PROCEDURE:VASECTOMY HERNIA REPAIR 02/08/2023 Bilateral PROCEDURE:INGUINAL HERNIA REPAIR;COMMENT:Procedure: LAPAROSCOPY REPAIR HERNIA INGUINAL; Surgeon: Anthony Wharton MD; Location: [facility]; Service: General; Laterality: Bilateral; THIS IS A 90 MIN CASE Medical History Medical History Date Comments ADHD (attention deficit hype ractivity disorder) DX:ADHD (attention deficit h yperactivity disorder) Bipolar 1 disorder ([facility]/HCC V24, CMS/HCC V28) DX:Bipolar 1 disorder ([facility]) Migraine DX:Migraine GERD (gastroesophageal reflux disease) DX:GERD [...] Date Smoking Tobacco: Every Day Cigarettes 1.3 18.8 Started: 08/14/2006 Smokeless Tobacco: Never Alcohol Use [...] Vaccines (1 - 3-dose SCDM series) 2021 Cholesterol Screening (Lipid Panel) 05/11/2023 HIV Screening 05/11/2023 Hepatitis C Screening 05/11/2023 Medicare Annual Wellness Visit 05/11/2023 Social Influencers of Health Screening 05/11/2023 Depression Screening 08/14/2024 COVID-19 Vaccine (3 - season) 2025 12/29/2020, 12/01/2020 Influenza Vaccine (#1) 2025 Hypertension/CHF/CAD Annual BMP Blood Test 12/31/2025 12/31/2024, 11/04/2022 RSV Immunization Adult Patients (1 - 1-dose 75+ series) 2069 Hepatitis B Vaccines Completed 10/07/1995, 01/26/1995, 1994 MMR Vaccines Completed 01/05/1996 HIB Vaccines Completed 04/08/1996, 06/14, 04/28/1995, Additional history exists Hepatitis A Vaccines Aged Out No long [...] this topic Medical Devices Implanted Type Area Field Artillery Officer Device Identifier Shelf Expiration Date Model / Serial / Lot Mesh 3d Max 4.3x6.3 Rt Lrg Dimensional Prefrm Rt Ster No Crba-Davl [id number] Implanted:Qty: 1 on 02/08/2023 by Anthony Wharton MD Right: Inguinal CR BARD - DAVOL DIV 07/11/2027 [id number] / / [id number] Mesh 3d Max 4.3x6.3 Lft Lrg Dimensional Prefrm Lft Ster N Crba-Davl [id number] Implanted:Qty: 1 on 02/08/2023 by Anthony Wharton MD Right: Inguinal CR BARD - DAVOL DIV 06/10/2027 [id number] / / [id number] Procedures Procedure Name Priority Date/Time Associated Diagnosis Comments COMPREHENSIVE METABOLIC PANEL STAT 12/31/2024 12:32 PM EDT from Last 3 Months or Most Recently Relevant to Health Maintenance Results * (ABNORMAL) Comprehensive Metabolic Panel (CMP) (12/31/2024 12:32 PM EDT) Sodium 139 135 - 145 mmol/L LAB CHEMISTRY METHOD 12/31/2024 1:12 PM EDT [facility] Potassium 3.7 3.5 - 5.1 mmol/L LAB CHEMISTRY METHOD 12/31/2024 1:12 PM EDT [facility] Chloride 103 98 - 107 mmol/L LAB CHEMISTRY METHOD 12/31/2024 1:12 PM EDT [facility] CO2 27 24 - 32 mmol/L LAB CHEMISTRY METHOD 12/31/2024 1:12 PM EDT [facility] Anion Gap 9 5 - 14 LAB CHEMISTRY METHOD 12/31/2024 1:12 PM EDT [facility] Glucose 95 70 - 199 mg/dL LAB CHEMISTRY METHOD 12/31/2024 1:12 PM EDT [facility] BUN 11 9 - 20 mg/dL LAB CHEMISTRY METHOD 12/31/2024 1:12 PM EDT [facility] Creatinine 0.70 0.70 - 1.30 mg/dL LAB CHEMISTRY METHOD 12/31/2024 1:12 PM EDT [facility] eGFR 127 >=60 mL/min/1. 73m2 LAB CHEMISTRY METHOD 12/31/2024 1:12 PM EDT [facility] Comment:Calculation based on the Chronic Kidney Disease Epidemiology Collaboration (CKD-EPI) equation refit without adjustment for race. BUN/Creatinine Ratio 15.7 12.0 - 20.0 LAB CHEMISTRY METHOD 12/31/2024 1:12 PM EDT [facility] Calcium 9.5 8.4 - 10.2 mg/dL LAB CHEMISTRY METHOD 12/31/2024 1:12 PM EDT [facility] AST (SGOT) 18 5 - 40 unit/L LAB CHEMISTRY METHOD 12/31/2024 1:12 PM EDT [facility] ALT (SGPT) 20 7 - 52 unit/L LAB CHEMISTRY METHOD 12/31/2024 1:12 PM EDT [facility] Alkaline Phosphatase 57 34 - 104 unit/L LAB CHEMISTRY METHOD 12/31/2024 1:12 PM EDT [facility] Total Protein 7.3 6.4 - 8.5 g/dL LAB CHEMISTRY METHOD 12/31/2024 1:12 PM EDT [facility] Albumin 4.6 3.5 - 5.0 g/dL LAB CHEMISTRY METHOD 12/31/2024 1:12 PM EDT [facility] Total Bilirubin 1.1(H) 0.3 - 1.0 mg/dL LAB CHEMISTRY METHOD 12/31/2024 1:12 PM EDT [facility] Blood Venous blood specimen / Unknown Venipuncture / Unknown 12/31/2024 12:32 PM EDT 12/31/2024 12:37 PM EDT us Yusuf Mckay NP LAB BLOOD ORDERABLES Final Res ult [facility] [address] [place] [address], [place] [phone] from Last 3 Months or Most Recently Relevant to Health Maintenance Insurance [place] - [place] - [place] Care Teams Instrumentation Technician Relationship Specialty Start Date End Date Physician, No Pcp PCP - General 12/31/24
--- OUTSIDE RECORDS SUMMARY | 2025-05-16 09:48 | XMS_ITS | Clinical Summary ---
Author Organization [facility] Address [address] [place] [address] Care Team Providers Care Electron Beam Photo Mask Technician Name Role Phone Pcp, No Primary Care [...] Years) (1 of 2 - PCV) 2013 Influenza Vaccine 03/14/2025 COVID-19 Vaccine (3 - 2024- season) 2025, 12/01/2020 HPV Vaccines (No Doses Required) Completed Insurance [facility] MEDICARE PART A & B MEDICARE PART A & B [facility] Care Teams Electron Beam Photo Mask Technician Relationship Specialty Start Date End Date Pcp, No PCP - General General Medicine 11/10/22
--- OUTSIDE RECORDS SUMMARY | 2025-05-16 09:48 | XMS_ITS | Patient Health Record ---
Author Organization [facility] Address [address] [place] [address] Care Team Providers Care Candy Packer Name Role Phone Claudio Palmira Primary Care [...] W/U Status Risk Notes Problem Mixed hyperlipidemia (717131574) Mixed hyperlipidemia (E78.2) Active confirmed Problem Essential hypertension (35290447) Essential hypertension (I10) Active confirmed Problem Obese class I (finding) (738927138761372) Obesity, Class I, BMI 30-34.9 (E66.9) Active confirmed Plan Of Treatment Pending Test Test Name Order Date CHLAMYDIA/N. GONORRHOEAE DNA, SDA 2017 Insurance Providers Payer Name Payer Address Payer Phone Subscriber Number Group Number Insured Name Patient Relationship to Insured Coverage Start Date Coverage End Date Medicare A NGS PPS UB [address] [place], [place] [id number] Macho Arambula Self - patient is the insured [facility] A SECONDARY [address] [place], [place] [phone] [id number] Macho Arambula Self - patient is the insured Medical (General) History Medical History History ICD Code Bipolar Disorder ADHD Obesity class I Hyperlipidemia Htn Surgical History Surgery Date(Month/Year)
== END 2025-05-16 09:58 | disposition home or self-care (01) ==
LOC: HO.HMCFMS 09:19
PROVIDERS: PCP Student in an Organized Health Care Education/Training Program; Visit Provider Student in an Organized Health Care Education/Training Program
DX: R10.31 Right lower quadrant pain (principal); R10.33 Periumbilical pain; Z98.890 Other specified postprocedural states; Z87.19 Personal history of other diseases of the digestive system; I10 Essential (primary) hypertension; F12.90 Cannabis use, unspecified, uncomplicated

== ENCOUNTER → 2025-05-16 09:18 | Outpatient (BNVA) | payer MEDICAID, SELFPAY | PROVIDERS: PCP Student in an Organized Health Care Education/Training Program; Visit Provider Student in an Organized Health Care Education/Training Program | DX: R10.31 Right lower quadrant pain (principal); R10.33 Periumbilical pain; I10 Essential (primary) hypertension; F12.90 Cannabis use, unspecified, uncomplicated; Z87.19 Personal history of other diseases of the digestive system; Z98.890 Other specified postprocedural states; Z13.30 Encounter for screening examination for mental health and behavioral disorders, unspecified | CPT/HCPCS: 99212 ==

== ENCOUNTER 2025-05-29 11:09 | Outpatient (AMB) | payer MEDICAID, SELFPAY ==
--- OUTSIDE RECORDS SUMMARY | 2024-01-15 12:18 | XMS_ITS | Encounter Summary ---
Author Organization [facility] Address [address] [place] [address] Care Team Providers Care Stereoptic Projection Topographer Name Role Phone Pcp, No Primary Care Provider Unavailabl e Encounter Details Date Type Department Care Team (Late st Contact Info) Description 01/15/2024 12:18 PM EDT Hospital Encounter [facility] [address] [place] [address] Renita Carcamo, CHRISTOPHER [address] [place] [address] Social History Tobacco Use Types Packs/Day Years [...] on filedocumented in this encounter Care Teams Stereoptic Projection Topographer Relationship Specialty Start Date End Date Pcp, No PCP - General General Medicine 11/10/22 documented as of this encounter
--- NOTE | 2025-05-29 11:13 | A.OFFPC_ITS ---
Vital Signs 05/29/25 11:14 Height 5 ft 10.24 in Weight 190 lb 4 oz BMI 27.1 BP 135/83 Blood Pressure Location Rt brachial Position Sitting Respiration 16 Pulse 89 Pulse Source Pulse Oximeter Temp 97.8 F Temp Source Oral Pulse Oximetry (%) 98 Oxygen Delivery Method Room Air Intake Visit Reasons: 2 wk blood pressure f/u Intake Note: pt here today for chest pain and high blood pressure. Computer Technology Teacher Required: No Accompanied by: Spouse Allergies No Known Allergies Allergy (Verified 05/29/25 11:14) Tobacco use date assessed: 05/29/25 Dental Screening Dental Screen Date: 05/29/25 Did you have a dental visit in the last 12 months?: Yes Did you have a dental problem in the last 6 months where you did not have access to dental care?: No Was dental information given to patient?: Patient has dentist HPI HPI Comments History of Present Illness Details Consent Patient was informed and verbally consented to the use of an ambient scribe for clinic note documentation during this visit. History of Present Illness The patient is a 29-year-old male presenting with high blood pressure and groin pain related to hernias. Essential Hypertension: - The patient has been experiencing high blood pressure, which was confirmed during the visit. - Laboratory tests showed normal potassi um levels and renal function. - The patient was started on Amlodipine 10 mg daily to manage the hypertension. Bilateral Inguinal Hernias: - The patient reported groin pain and wa s diagnosed with bilateral inguinal hernias after a CT scan and ultrasound. - He was advised to see a general surgeo n for further management and has an appointment scheduled. Review of Systems - Cardiovascular: Reports high blood pre ssure. Denies chest pain or palpitations. - Gastrointestinal: Reports groin pain. Denies nausea or vomiting. 10-point ROS reviewed and negative excep t as noted in HPI Past Medical History - History of hernia repair. Health Maintenance Physical Exam General: Well-appearing, in no acute distress. Vital signs: Blood pressure is high. HEENT: Normocephalic, atraumatic. PERRLA, EOMI. Conjunctiva clear, sclera anicteric. Oropharynx clear, mucous membranes moist. TMs intact bilaterally. Neck: Supple, no lymphadenopathy, no thyromegaly, no JVD or carotid bruits. Cardiovascular: RRR, normal S1/S2, no murmurs, rubs, or gallops. Peripheral pulses 2+ and symmetric. No edema. Respiratory: Lungs clear to auscultation bilaterally, no wheezes, rales, or rhonchi. Normal effort. Abdomen: Soft, non-tender, non-distended. Normoactive bowel sounds. No hepatosplenomegaly, no masses. Bilateral inguinal hernias noted, with pain reported in the groin and legs. MSK: Full range of motion, no joint swelling or deformity. Normal gait. Skin: Warm, dry, intact. No rashes, lesions, or pallor. Neuro: Alert and oriented x3. Cranial nerves II-XII intact. Strength 5/5 throughout. Sensation intact. Reflexes 2+ symmetric. Normal coordination and gait. Psych: Appropriate mood and affect. Normal judgment and insight. Plan 1. Essential Hypertension - Initiate Amlodipine 10 mg daily to man age blood pressure. - Monitor blood pressure regularly and f ollow up in one month to assess medication efficacy. 2. Bilateral Inguinal Hernias - Referral to general surgery for evalua tion and management of hernias. - Follow up with the surgeon on the sche duled appointment date. Discussion Notes I discussed with the patient the initiation of Amlodipine for hypertension management, emphasizing the importance of adherence to medication and regular blood pressure monitoring. We also reviewed the need for surgical consultation for his bilateral inguinal hernias and confirmed his upcoming appointment with a general surgeon. Patient Instructions - Take Amlodipine 10 mg once daily as pr escribed. - Monitor your blood pressure regularly and record the readings. - Attend the scheduled appointment with the general surgeon for hernia evaluation. - Avoid heavy lifting or straining until after surgical consultation. Medical Decision Making The decision to start Amlodipine was based on the patient's elevated blood pressure and normal laboratory results, indicating suitability for this medication. The goal is to achieve optimal blood pressure control and prevent complications. Referral to general surgery was made due to the confirmed diagnosis of bilateral inguinal hernias, with the aim of surgical evaluation and management to alleviate symptoms and prevent further complications. Total time spent caring for the patient today was 30 minutes. This includes time spent before the visit reviewing the chart, time spent documenting, and time spent reviewing laboratory results, diagnostic imaging, medications, performing a medically necessary evaluation, counseling on diagnoses, care coordination. [facility] Medical History (Updated 05/16/25 @ 17:07 by Neptali Paulino MD) Umbilical pain Inguinal pain Cannabis use disorder Visual impairment Migraine Hypertension GERD (gastroesophageal reflux disease) Bipolar 1 disorder ADHD (attention deficit hyperactivity disorder) Surgical History History of inguinal hernia repair History of inguinal hernia repair, bilateral H/O vasectomy H/O laparoscopy Family History Father Diabetes High blood pressure Mother Diabetes High blood pressure Social History Housing: House Alcohol intake: current Alcohol intake frequency: does not drink Patient Tobacco Use Status: Current everyday Tobacco user Cigarette Packs Per Day: 1 Cigarettes Per Day: 20 Substance Use Type: Marijuana service: No Current occupational status: employed Cognitive needs: No Hearing needs: No Vision needs: Yes (rx glasses) Questionnaire PHQ-9 Over the last 2 weeks, how often have you been bothered by any of the following problems? 1. Little interest or pleasure in doing things: not at all 2. Feeling down, depressed, or hopeless: not at all 3. Trouble falling or staying asleep, or sleeping too much: not at all 4. Feeling tired or having little energy: not at all 5. Poor appetite or overeating: not at all 6. Feeling bad about yourself - or that you are a failure or have let yourself or your family down: not at all 7. Trouble concentrating on things, such as reading the newspaper or watching television: not at all 8. Moving or speaking so slowly that other people could have noticed. Or the opposite - being so fidgety or restless that you have been moving around a lot more than usual: not at all 9. Thoughts that you would be better off or of hurting yourself in some way: not at all Total score: 0 Source: Developed by Drs. Vinicius Thomas, Raquel Tiwari, Johnathon Lagos and colleagues, with an educational kim from [employer]. Thrive Questionnaire Date Thrive assessed: 05/29/25 I am a: Patient What is your living situation today?: I have a steady place to live Within the past 12 months, did the food you bought not last and you didn't have the money to get more?: Never true Do you have trouble paying for medicines?: No Do you have trouble getting transportation to medical appointments?: No Do you have trouble paying your heating and electricity bill?: No Do you have trouble taking care of your child, family member or friend?: No Do you have trouble with day-to-day activities such as bathing, preparing meals, shopping, managing finances, etc.?: No Are you currently unemployed and looking for a job?: No Are you interested in more education?: No Please select the resources that you would like help with: None Currently or been in a relationship where the following occur: No concerns reported THRIVE Score: 0 AUDIT C Alcohol Use Questionnaire (AUDIT-C) 1. How often do you have a drink containing alcohol?: Never 3. How often do you have six or more drinks on one occasion?: Never Total Score: 0 ARIANNE-7 AMB Questionnaire ARIANNE-7 Date ARIANNE - 7 assessed: 05/29/25 Feeling nervous, anxious, or on edge: 3 = Nearly every day Not being able to stop or control worryin = Nearly every day Worrying too much about different things: 3 = Nearly every day Trouble relaxin = Nearly every day Being so restless that it is hard to sit still: 2 = More than half the days Becoming easily annoyed or irritable: 2 = More than half the days Feeling afraid as if something awful might happen: 3 = Nearly every day Total ARIANNE-7 score (0-4 normal; 5-9 mild; 10-14 moderate; 15-21 severe): 19 Source: Developed by Drs. Vinicius Thomas, Raquel Tiwari, Johnathon carter nd colleagues, with an educational kim from [employer]. Physical exam (Primary Care) Vital Signs: Last Vital Signs Temp 97.8 F 05/29/25 11:14 Pulse 89 05/29/25 11:14 Resp 16 05/29/25 11:14 BP 135/83 05/29/25 11:14 Pulse Ox 98 05/29/25 11:14 Oxygen Delivery Method Room Air 05/29/25 11:14 BMI result Body Mass Index 27.1 Tobacco/Smoking Status: Tobacco use Status Tobacco use date assessed 05/29/25 05/29/25 11:18 Patient Tobacco Use Status Current everyday Tobacco 05/29/25 11:18 PHQ-9: PHQ-9 Score PHQ-9: Total score 0 05/29/25 11:18 Thrive Assessment: Date of Thrive Assessment Date Thrive assessed 05/29/25 05/29/25 11:18 Currently or been in a relationship where the following occur: No concerns reported Coding Level of Care Code Est Pt Level 4 (67893) Diagnoses Hypertension I10 History of inguinal hernia repair Z98.890; Z87.19 Right inguinal pain R10.31 Laterality: right Assessment & Plan Assessment & Plan (1) Hypertension: Code(s): I10 - Essential (primary) hypertension (2) History of inguinal hernia repair: Code(s): Z98.890 - Other specified postprocedural states; Z87.19 - Personal history of other diseases of the digestive system Category: Surgical (3) Inguinal pain: Code(s): R10.30 - Lower abdominal pain, unspecified Category: Medical Qualifiers: Laterality: right Qualified Code(s): R10.31 - Right lower quadrant pain Plan Medications: New amlodipine 10 mg PO DAILY 90 tabs 0RF I10 - Essential (primary) hypertension
[2025-05-29 11:14] VITALS: BP 135/83; PULSE 89; RESP 16; TEMP 36.6; O2SAT 98; BMI 27.1
--- OUTSIDE RECORDS SUMMARY | 2025-05-29 14:18 | XMS_ITS | Clinical Summary ---
Author Organization [facility] Address [address] [place] [address] Care Team Providers Care Cartridge Assembler Name Role Phone Coleen Norman MD Primary [...] this topic Medical Devices Implanted Type Area Metal Precision Machine Assembler Device Identifier Shelf Expiration Date Model / Serial / Lot Mesh 3d Max 4.3x6.3 Rt Lrg Dimensional Prefrm Rt Ster No Crba-Davl [id number] - [id number] Implanted:Qty: 1 on 02/08/2023 by Anthony Wharton MD at [facility] [place] and Med Right: Inguinal CR BARD - DAVOL DIV 07/11/2027 [id number] / / [id number] Mesh 3d Max 4.3x6.3 Lft Lrg Dimensional Prefrm Lft Ster N Crba-Davl [id number] - [id number] Implanted:Qty: 1 on 02/08/2023 by Anthony Wharton MD at [facility] [place] and [facility] Right: Inguinal CR BARD - DAVOL DIV 06/10/2027 [id number] / / [id number] Care Teams Cartridge Assembler Relationship Specialty Start Date End Date Coleen Norman MD PCP - General 02/07/24
--- OUTSIDE RECORDS SUMMARY | 2025-05-29 14:18 | XMS_ITS | Patient Health Record ---
Author Organization [facility] Address [address] [place] [address] Care Team Providers Care Equipment Engineer Name Role Phone Claudio Palmira Primary [...] W/U Status Risk Notes Problem Mixed hyperlipidemia (968344492) Mixed hyperlipidemia (E78.2) Active confirmed Problem Essential hypertension (76031344) Essential hypertension (I10) Active confirmed Problem Obese class I (finding) (210461048348690) Obesity, Class I, BMI 30-34.9 (E66.9) Active confirmed Plan Of Treatment Pending Test Test Name Order Date CHLAMYDIA/N. GONORRHOEAE DNA, SDA 2017 Insurance Providers Payer Name Payer Address Payer Phone Subscriber Number Group Number Insured Name Patient Relationship to Insured Coverage Start Date Coverage End Date Medicare A NGS PPS UB [address] [place], [place] [id number] Macho Arambula Self - patient is the insured [facility] A SECONDARY [address] [place], [place] [id number] Macho Arambula Self - patient is the insured Medical (General) History Medical History History ICD Code Bipolar Disorder ADHD Obesity class I Hyperlipidemia Htn Surgical History Surgery Date(Month/Year)
--- OUTSIDE RECORDS SUMMARY | 2025-05-29 14:18 | XMS_ITS | Clinical Summary ---
Author Organization [facility] Address [address] [place] [address] Care Team Providers Care Wire Bound Box Machine Operator Name Role Phone Pcp, No Primary Care [...] HPV Vaccines (No Doses Required) Completed Insurance [facility] MEDICARE PART A & B MEDICARE PART A & B [facility] Care Teams Wire Bound Box Machine Operator Relationship Specialty Start Date End Date Pcp, No PCP - General General Medicine 11/10/22
--- OUTSIDE RECORDS SUMMARY | 2025-05-29 14:18 | XMS_ITS | Clinical Summary ---
Author Organization [facility] Address [address] [place] [address] Phone Care Team Providers Care Pharmacist'S Aide Name Role Phone Physician, No Pcp Primary [...] EDT - 03/07/2025 3:32 PM EDT Emergency [facility] [address] [place] [address] Paronychia of finger, unspecified laterality (Primary Dx) Discharge Disposition: Home or Self Care from Last 3 Months Surgical History Surgery Date Site/Laterality Comments VASECTOMY PROCEDURE:VASECTOMY HERNIA REPAIR 02/08/2023 Bilateral PROCEDURE:INGUINAL HERNIA REPAIR;COMMENT:Procedure: LAPAROSCOPY REPAIR HERNIA INGUINAL; Surgeon: Anthony Wharton MD; Location: AMBULATORY SURGERY; Service: General; Laterality: Bilateral; THIS IS A 90 MIN CASE Medical History Medical History Date Comments ADHD (attention deficit hype ractivity disorder) DX:ADHD (attention deficit h yperactivity disorder) Bipolar 1 disorder ([facility]/HCC V24, CMS/HCC V28) DX:Bipolar 1 disorder ([facility]) Migraine DX:Migraine GERD (gastroesophageal reflux [...] this topic Medical Devices Implanted Type Area Repairing Calibrator Device Identifier Shelf Expiration Date Model / Serial / Lot Mesh 3d Max 4.3x6.3 Rt Lrg Dimensional Prefrm Rt Ster No Crba-Davl [id number] Implanted:Qty: 1 on 02/08/2023 by Anthony Wharton MD Right: Inguinal CR BARD - DAVOL DIV 07/11/2027 [id number] / / [id number] Mesh 3d Max 4.3x6.3 Lft Lrg Dimensional Prefrm Lft Ster N Crba-Davl [id number] Implanted:Qty: 1 on 02/08/2023 by Anthony Wharton MD Right: Inguinal CR BARD - DAVOL DIV 06/10/2027 [id number] / / [id number] Procedures Procedure Name Priority Date/Time Associated Diagnosis Comments COMPREHENSIVE METABOLIC PANEL STAT 12/31/2024 12:32 PM EDT from Last 3 Months or Most Recently Relevant to Health Maintenance Results * (ABNORMAL) Comprehensive Metabolic Panel (CMP) (12/31/2024 12:32 PM EDT) Sodium 139 135 - 145 mmol/L LAB CHEMISTRY METHOD 12/31/2024 1:12 PM EDT [facility] Potassium 3.7 3.5 - 5.1 mmol/L LAB CHEMISTRY METHOD 12/31/2024 1:12 PM EDT [facility] Chloride 103 98 - 107 mmol/L LAB CHEMISTRY METHOD 12/31/2024 1:12 PM EDT [facility] CO2 27 24 - 32 mmol/L LAB CHEMISTRY METHOD 12/31/2024 1:12 PM EDT [facility] Anion Gap 9 5 - 14 LAB CHEMISTRY METHOD 12/31/2024 1:12 PM EDT [facility] Glucose 95 70 - 199 mg/dL LAB CHEMISTRY METHOD 12/31/2024 1:12 PM EDT [facility] BUN 11 9 - 20 mg/dL LAB CHEMISTRY METHOD 12/31/2024 1:12 PM EDT [facility] Creatinine 0.70 0.70 - 1.30 mg/dL LAB CHEMISTRY METHOD 12/31/2024 1:12 PM EDT [facility] eGFR 127 >=60 mL/min/1. 73m2 LAB CHEMISTRY METHOD 12/31/2024 1:12 PM EDT [facility] Comment:Calculation based on the Chronic Kidney Disease Epidemiology Collaboration (CKD-EPI) equation refit without adjustment for race. BUN/Creatinine Ratio 15.7 12.0 - 20.0 LAB CHEMISTRY METHOD 12/31/2024 1:12 PM EDT [facility] Calcium 9.5 8.4 - 10.2 mg/dL LAB CHEMISTRY METHOD 12/31/2024 1:12 PM EDT [facility] AST (SGOT) 18 5 - 40 unit/L LAB CHEMISTRY METHOD 12/31/2024 1:12 PM EDT [facility] ALT (SGPT) 20 7 - 52 unit/L LAB CHEMISTRY METHOD 12/31/2024 1:12 PM EDT [facility] Alkaline Phosphatase 57 34 - 104 unit/L LAB CHEMISTRY METHOD 12/31/2024 1:12 PM EDT [facility] Total Protein 7.3 6.4 - 8.5 g/dL LAB CHEMISTRY METHOD 12/31/2024 1:12 PM EDT [facility] Albumin 4.6 3.5 - 5.0 g/dL LAB CHEMISTRY METHOD 12/31/2024 1:12 PM EDT [facility] Total Bilirubin 1.1(H) 0.3 - 1.0 mg/dL LAB CHEMISTRY METHOD 12/31/2024 1:12 PM EDT [facility] Blood Venous blood specimen / Unknown Venipuncture / Unknown 12/31/2024 12:32 PM EDT 12/31/2024 12:37 PM EDT us Yusuf Mckay NP LAB BLOOD ORDERABLES Final Res ult [facility] [address] [place] [address], [place] [phone] from Last 3 Months or Most Recently Relevant to Health Maintenance Insurance [place]ARE [place]ICA[place] - [place] Care Teams Pharmacist'S Aide Relationship Specialty Start Date End Date Physician, No Pcp PCP - General 12/31/24
== END 2025-05-29 11:36 | disposition home or self-care (01) ==
LOC: HO.HMCFMS 11:09
PROVIDERS: PCP Student in an Organized Health Care Education/Training Program; Visit Provider Student in an Organized Health Care Education/Training Program
DX: I10 Essential (primary) hypertension (principal); Z98.890 Other specified postprocedural states; Z87.19 Personal history of other diseases of the digestive system; R10.31 Right lower quadrant pain

== ENCOUNTER → 2025-05-29 11:09 | Outpatient (BNVA) | payer MEDICAID, SELFPAY | PROVIDERS: PCP Student in an Organized Health Care Education/Training Program; Visit Provider Student in an Organized Health Care Education/Training Program | DX: I10 Essential (primary) hypertension (principal); R10.31 Right lower quadrant pain; Z87.19 Personal history of other diseases of the digestive system; Z98.890 Other specified postprocedural states; Z13.39 Encounter for screening examination for other mental health and behavioral disorders; Z13.30 Encounter for screening examination for mental health and behavioral disorders, unspecified | CPT/HCPCS: 99212 ==

== ENCOUNTER 2025-06-05 08:20 | Outpatient (AMB) | payer MEDICAID, SELFPAY ==
--- OUTSIDE RECORDS SUMMARY | 2024-01-15 12:18 | XMS_ITS | Encounter Summary ---
Author Organization [facility] Address [address] [place] [address] Care Team Providers Care Band Lining Bander Name Role Phone Pcp, No Primary Care Provider Unavailabl e Encounter Details Date Type Department Care Team (Late st Contact Info) Description 01/15/2024 12:18 PM EDT Hospital Encounter [facility] Ur[facility] [address] [place] [address] Renita Carcamo, CHRISTOPHER [address] [place] [address] Social History Tobacco Use Types Packs/Day Years [...] on filedocumented in this encounter Care Teams Band Lining Bander Relationship Specialty Start Date End Date Pcp, No PCP - General General Medicine 11/10/22 documented as of this encounter
--- NOTE | 2025-06-05 08:35 | MHC.OFFVIS ---
Vital Signs 06/05/25 08:41 Height 5 ft 10.24 in Weight 192 lb BMI 27.4 BP 137/84 Blood Pressure Location Rt brachial Position Sitting Pulse 79 Intake Visit Reasons: Periumbilical pain * urgent req Intake Note: This patient was referred by Neptali Paulino for an assessment for periumbilical hernia. Pt c/o; Hx hernia repair, b/l groin, reports dysuria, he has the urge to urinate but can be in the bathroom attempting to urinate for about 7 minutes and nothing comes out, sometimes I feel like my belly button is going to fall off too . Steam And Gas Turbine Assembler Required: No Accompanied by: Self / Same As Patient Allergies No Known Allergies Allergy (Verified 06/05/25 08:44) Medication List - Last Reconciled 06/05/25 by Brett Nunes MD amlodipine 10 mg PO DAILY triamcinolone acetonide 0.1% 1 appl topical DAILY HPI HPI Periumbilical pain * urgent req: Details: 29-year-old male referred for question of a hernia. He had been complaining of urgency of urination, along with suprapubic pain for several weeks. He says the pain radiates all the way to the groin on both sides as well as his testicles. He denies seeing gross blood in the urination. He said he went to the ER 2 weeks ago. He was told that he may have a hernia on the left side He had bilateral inguinal hernia repair in [place] about 3 years ago. He has state that did not have any problems with this before. He denies feeling any lump on his groin. [facility] Medical History Umbilical pain Inguinal pain Cannabis use disorder Visual impairment Migraine Hypertension GERD (gastroesophageal reflux disease) Bipolar 1 disorder ADHD (attention deficit hyperactivity disorder) Surgical History History of inguinal hernia repair History of inguinal hernia repair, bilateral H/O vasectomy H/O laparoscopy Family History Father Diabetes High blood pressure Mother Diabetes High blood pressure Social History Housing: House Alcohol intake: current Alcohol intake frequency: does not drink Patient Tobacco Use Status: Current everyday Tobacco user Cigarette Packs Per Day: 1 Cigarettes Per Day: 20 Substance Use Type: Marijuana service: No Current occupational status: employed Cognitive needs: No Hearing needs: No Vision needs: Yes (rx glasses) Review of Systems Const Denies chills and Denies fever(s) Card Denies chest pain, Denies dyspnea and Denies dyspnea on exertion Resp Denies cough, Denies dyspnea and Denies dyspnea on exertion GI Denies hematochezia and Denies change in bowel habits Denies hematuria, Reports difficulty urinating and Reports urinary urgency Musc Denies back pain and Denies limited range of motion Neuro Denies focal weakness and Denies convulsions Psych Denies depression and Denies mood swings Physical Exam Vital Signs: Last Vital Signs Pulse 79 06/05/25 08:41 BP 137/84 06/05/25 08:41 BMI result Body Mass Index 27.4 Const General: comfortable and no acute distress Orientation/consciousness: patient oriented x3 Neck Neck: Yes no lymphadenopathy Resp Auscultation: clear to auscultation bilaterally Cardio Rhythm: regular rhythm GI Other: No obvious palpable inguinal hernias Palpation (GI): Soft to palpation, nontender and no guarding Neuro General: patient oriented x3 Assessment & Plan Assessment & Plan (1) Inguinal pain: Code(s): R10.30 - Lower abdominal pain, unspecified Category: Medical Qualifiers: Laterality: right Qualified Code(s): R10.31 - Right lower quadrant pain Plan: He has been having urinary urgency, suprapubic pain and pain on both the groin areas. He went to the ER for these problems 2 weeks ago in [facility]. He says he was told that he had blood in his urine as well as possible hernia in the left groin I do not feel any obvious hernia currently. I told him that we will review his CAT scan so we will have to retrieve this from [facility]. I will see him again in about 2 weeks to review the images with him He also says that he had blood in his urine andshe has significant urinary complaints. I told him he may have cystitis or urethritis so I explained to him that he should discuss this with his primary care physician so that he can be referred to the appropriate specialist. Coding Level of Care Code New Pt Level 3 (54783) Diagnoses Right inguinal pain R10.31 Laterality: right
[2025-06-05 08:41] VITALS: BP 137/84; PULSE 79; BMI 27.4
--- OUTSIDE RECORDS SUMMARY | 2025-06-05 08:41 | XMS_ITS | Clinical Summary ---
Author Organization [facility] Address [address] [place] [address] Phone Care Team Providers Care Flight Information Expediter Name Role Phone Physician, No Pcp Primary [...] EDT - 03/07/2025 3:32 PM EDT Emergency [facility] Emergency [address] [place] [address] Paronychia of finger, unspecified laterality (Primary Dx) Discharge Disposition: Home or Self Care from Last 3 Months Surgical History Surgery Date Site/Laterality Comments VASECTOMY PROCEDURE:VASECTOMY HERNIA REPAIR 02/08/2023 Bilateral PROCEDURE:INGUINAL HERNIA REPAIR;COMMENT:Procedure: LAPAROSCOPY REPAIR HERNIA INGUINAL; Surgeon: Anthony Wharton MD; Location: [facility] AMBULATORY SURGERY; Service: General; Laterality: Bilateral; THIS IS A 90 MIN CASE Medical History Medical History Date Comments ADHD (attention deficit hype ractivity disorder) DX:ADHD (attention deficit h yperactivity disorder) Bipolar 1 disorder ([facility]/HCC V24, CMS/HCC V28) DX:Bipolar 1 disorder ([facility]) Migraine DX:Migraine GERD (gastroesophageal reflux disease) DX:GERD [...] this topic Medical Devices Implanted Type Area Pastrycook Device Identifier Shelf Expiration Date Model / Serial / Lot Mesh 3d Max 4.3x6.3 Rt Lrg Dimensional Prefrm Rt Ster No Crba-Davl [id number] Implanted:Qty: 1 on 02/08/2023 by Anthony Wharton MD Right: Inguinal CR BARD - DAVOL DIV 07/11/2027 [id number] / / [id number] Mesh 3d Max 4.3x6.3 Lft Lrg Dimensional Prefrm Lft Ster N Crba-Davl [id number] Implanted:Qty: 1 on 02/08/2023 by Anthony Wharton MD Right: Inguinal CR BARD - DAVOL DIV 06/10/2027 [id number] / / [id number] Procedures Procedure Name Priority Date/Time Associated Diagnosis Comments COMPREHENSIVE METABOLIC PANEL STAT 12/31/2024 12:32 PM EDT from Last 3 Months or Most Recently Relevant to Health Maintenance Results * (ABNORMAL) Comprehensive Metabolic Panel (CMP) (12/31/2024 12:32 PM EDT) Sodium 139 135 - 145 mmol/L LAB CHEMISTRY METHOD 12/31/2024 1:12 PM EDT [facility] Potassium 3.7 3.5 - 5.1 mmol/L LAB CHEMISTRY METHOD 12/31/2024 1:12 PM EDT [facility] Chloride 103 98 - 107 mmol/L LAB CHEMISTRY METHOD 12/31/2024 1:12 PM EDT [facility] CO2 27 24 - 32 mmol/L LAB CHEMISTRY METHOD 12/31/2024 1:12 PM EDT [facility] Anion Gap 9 5 - 14 LAB CHEMISTRY METHOD 12/31/2024 1:12 PM EDT [facility] Glucose 95 70 - 199 mg/dL LAB CHEMISTRY METHOD 12/31/2024 1:12 PM EDT [facility] BUN 11 9 - 20 mg/dL LAB CHEMISTRY METHOD 12/31/2024 1:12 PM EDT [facility] Creatinine 0.70 0.70 - 1.30 mg/dL LAB CHEMISTRY METHOD 12/31/2024 1:12 PM EDT [facility] eGFR 127 >=60 mL/min/1. 73m2 LAB CHEMISTRY METHOD 12/31/2024 1:12 PM EDT [facility] Comment:Calculation based on the Chronic Kidney Disease Epidemiology Collaboration (CKD-EPI) equation refit without adjustment for race. BUN/Creatinine Ratio 15.7 12.0 - 20.0 LAB CHEMISTRY METHOD 12/31/2024 1:12 PM EDT [facility] Calcium 9.5 8.4 - 10.2 mg/dL LAB CHEMISTRY METHOD 12/31/2024 1:12 PM EDT [facility] AST (SGOT) 18 5 - 40 unit/L LAB CHEMISTRY METHOD 12/31/2024 1:12 PM EDT [facility] ALT (SGPT) 20 7 - 52 unit/L LAB CHEMISTRY METHOD 12/31/2024 1:12 PM EDT [facility] Alkaline Phosphatase 57 34 - 104 unit/L LAB CHEMISTRY METHOD 12/31/2024 1:12 PM EDT [facility] Total Protein 7.3 6.4 - 8.5 g/dL LAB CHEMISTRY METHOD 12/31/2024 1:12 PM EDT [facility] Albumin 4.6 3.5 - 5.0 g/dL LAB CHEMISTRY METHOD 12/31/2024 1:12 PM EDT [facility] Total Bilirubin 1.1(H) 0.3 - 1.0 mg/dL LAB CHEMISTRY METHOD 12/31/2024 1:12 PM EDT [facility] Blood Venous blood specimen / Unknown Venipuncture / Unknown 12/31/2024 12:32 PM EDT 12/31/2024 12:37 PM EDT us Yusuf Mckay NP LAB BLOOD ORDERABLES Final Res ult [facility] [address] [place] [address], [place] [phone] from Last 3 Months or Most Recently Relevant to Health Maintenance Insurance MEDICAID - [place] MEDICARE MEDICAID - [place] Care Teams Flight Information Expediter Relationship Specialty Start Date End Date Physician, No Pcp PCP - General 12/31/24
--- OUTSIDE RECORDS SUMMARY | 2025-06-05 08:41 | XMS_ITS | Clinical Summary ---
Author Organization [facility] Address [address] [place] [address] Care Team Providers Care Pet Resort Concierge Name Role Phone Coleen Norman MD Primary [...] this topic Medical Devices Implanted Type Area Net Application Architect Device Identifier Shelf Expiration Date Model / Serial / Lot Mesh 3d Max 4.3x6.3 Rt Lrg Dimensional Prefrm Rt Ster No Crba-Davl [id number] - [id number] Implanted:Qty: 1 on 02/08/2023 by Anthony Wharton MD at [facility] and Med Right: Inguinal CR BARD - DAVOL DIV 07/11/2027 [id number] / / [id number] Mesh 3d Max 4.3x6.3 Lft Lrg Dimensional Prefrm Lft Ster N Crba-Davl [id number] - [id number] Implanted:Qty: 1 on 02/08/2023 by Anthony Wharton MD at [facility] and [facility] Right: Inguinal CR BARD - DAVOL DIV 06/10/2027 [id number] / / [id number] Care Teams Pet Resort Concierge Relationship Specialty Start Date End Date Coleen Norman MD PCP - General 02/07/24
--- OUTSIDE RECORDS SUMMARY | 2025-06-05 08:41 | XMS_ITS | Clinical Summary ---
Author Organization [facility] Address [address] [place] [address] Care Team Providers Care Oral Communication Instructor Name Role Phone Pcp, No Primary Care [...] HPV Vaccines (No Doses Required) Completed Insurance [facility] MEDICARE PART A & B MEDICARE PART A & B [facility] Care Teams Oral Communication Instructor Relationship Specialty Start Date End Date Pcp, No PCP - General General Medicine 11/10/22
== END 2025-06-05 09:03 | disposition home or self-care (01) ==
LOC: HO.HGS 08:21
PROVIDERS: PCP Student in an Organized Health Care Education/Training Program; Visit Provider Surgery
DX: R10.31 Right lower quadrant pain (principal)
CPT/HCPCS: 99203

== ENCOUNTER → 2025-06-05 08:20 | Outpatient (BNVA) | payer MEDICARE, SELFPAY | PROVIDERS: PCP Student in an Organized Health Care Education/Training Program; Visit Provider Surgery | DX: R10.31 Right lower quadrant pain (principal); R39.15 Urgency of urination; Z87.19 Personal history of other diseases of the digestive system; Z98.890 Other specified postprocedural states | CPT/HCPCS: 99202 ==

== ENCOUNTER 2025-06-25 09:47 | Outpatient (AMB) | payer MEDICARE, MEDICAID, SELFPAY ==
--- OUTSIDE RECORDS SUMMARY | 2024-01-15 11:18 | XMS_ITS | Encounter Summary ---
Author Organization [facility] Address [address] [place] [address] Care Team Providers Care Paint Spray Tender Name Role Phone Pcp, No Primary Care Provider Unavailabl e Encounter Details Date Type Department Care Team (Late st Contact Info) Description 01/15/2024 12:18 PM EDT Hospital Encounter [facility] [address] [place] [address] Renita Carcamo, CHRISTOPHER [address] [place] [address] Social History Tobacco Use Types Packs/Day Years Used Date Smoking Tobacco: Every Day Cigarettes Smokeless Tobacco: Never Alcohol Use Standard Drinks/Week Comments Never 0 (1 standard drink = 0.6 oz pur e alcohol) denies AUDIT-C Answer Date Recorded Q1: How often do you have a drink containing alcohol? Never 10/28/2022 Q2: How many drinks containi ng alcohol do you have on a typical day when you are drinking? Patient does not drink Q3: How often do you have si x or more drinks on one occasion? Never 10/28/2022 Sex and Gender Information Value Date Recorded Sex Assigned at Male 11/10/2022 10:29 AM EDT Legal Sex Male 1:18 AM EDT Gender Identity Male 11/10/2022 10:29 AM EDT Sexual Orientation Heterosexual (straight) 11/10 10:29 AM EDT documented as of this encounter Plan of Treatment Not on file documented as of this encounter Procedures Procedure Name Priority Date/Time Associated Diagnosis Comments XR FINGER (1ST) 2+ VIEWS-LEFT STAT 01/15/2024 12:27 PM EDT Pain of left thumb documented in this encounter Results * XR Finger (1st) 2+ views-Left (01/15/2024 12:27 PM EDT) Anatomical Region Laterality Modality Hand Left Computed Radiogr aphy 01/15/2024 12:3 2 PM EDT Impressions 01/15/2024 12:33 PM EDT No acute findings. Narrative 01/15/2024 12:33 PM EDT 3 views left thumb. No fracture or malalignment. No focal osseous lesion. No proliferative or erosive changes. 2 mm soft tissue calcification adjacent to the head of the metacarpal on the radial side appears chronic, likely from old tendinous injury. Foreign body or soft tissue gas. Procedure Note Pankaj Pugh MD - 01/15/2024 3 views left thumb. No fracture or malalignment. No focal osseous lesion. No proliferative orerosive changes. 2 mm soft tissue calcification adjacent to the head ofthe metacarpal on the radial side appears chronic, likely from oldtendinous injury. Foreign body or soft tissue gas. IMPRESSION: No acute findings. Renita Carcamo APRN IMG DIAGNOSTIC IMAGING ORD ERABLES Final Result documented in this encounter Visit Diagnoses Not on filedocumented in this encounter Care Teams Paint Spray Tender Relationship Specialty Start Date End Date Pcp, No PCP - General General Medicine 11/10/22 documented as of this encounter
--- NOTE | 2025-06-25 10:03 | MHC.OFFVIS ---
Vital Signs 06/25/25 10:06 Height 5 ft 10.24 in Weight 192 lb 6 oz BMI 27.4 Intake Visit Reasons: pain at hernia site *urgent appt* Intake Note: Patient presents for an assessment for symptomatic hernia. Pt c/o; reports right groin pain, reports no changes to bowel habits. Well Puller Head Required: No Accompanied by: Self / Same As Patient Allergies No Known Allergies Allergy (Verified 06/25/25 10:07) Medication List - Last Reconciled 06/25/25 by Brett Nunes MD amlodipine 10 mg PO DAILY triamcinolone acetonide 0.1% 1 appl topical DAILY HPI HPI pain at hernia site *urgent appt*: Details: He is here for follow-up for his seen in the right groin status post hernia repair in [place] 3 years ago He says he continues to have this occasional sharp pain in the right side. He does not really notice any obvious mass. He denies any GI complaints He says he has been scheduled for a follow up CAT scan by his primary care physician. This has not been done yet. [facility] Medical History Umbilical pain Inguinal pain Cannabis use disorder Visual impairment Migraine Hypertension GERD (gastroesophageal reflux disease) Bipolar 1 disorder ADHD (attention deficit hyperactivity disorder) Surgical History History of inguinal hernia repair History of inguinal hernia repair, bilateral H/O vasectomy H/O laparoscopy Family History Father Diabetes High blood pressure Mother Diabetes High blood pressure Social History Housing: House Alcohol intake: current Alcohol intake frequency: does not drink Patient Tobacco Use Status: Current everyday Tobacco user Cigarette Packs Per Day: 1 Cigarettes Per Day: 20 Substance Use Type: Marijuana service: No Current occupational status: employed Cognitive needs: No Hearing needs: No Vision needs: Yes (rx glasses) Review of Systems Const Denies chills and Denies fever(s) Card Denies chest pain, Denies dyspnea and Denies dyspnea on exertion Resp Denies cough, Denies dyspnea and Denies dyspnea on exertion GI Denies hematochezia and Denies change in bowel habits Denies hematuria and Denies difficulty urinating Musc Denies back pain and Denies limited range of motion Neuro Denies focal weakness and Denies convulsions Psych Denies depression and Denies mood swings Physical Exam Vital Signs: BMI result Body Mass Index 27.4 Const General: comfortable and no acute distress Resp Effort & Inspection: normal respiratory effort GI Other: No palpable mass on the left of the right groin areas, no obvious hernia Palpation (GI): Soft to palpation, not firm, nontender and no guarding Assessment & Plan Assessment & Plan (1) Inguinal pain: Code(s): R10.30 - Lower abdominal pain, unspecified Category: Medical Qualifiers: Laterality: right Qualified Code(s): R10.31 - Right lower quadrant pain Plan: He has a right-sided inguinal pain after appears to be laparoscopic repair of his inguinal hernias in [place]. I do not feel any obvious hernia currently. He is actually scheduled to have a CAT scan on 07/17/2025. I will see him the week after that so we can review the findings. Rest of the plan of his care will depend on his CAT scan report I explained the above to him and he seems to understand well. Coding Level of Care Code Est Pt Level 2 (31904) Diagnoses Right inguinal pain R10.31 Laterality: right
[2025-06-25 10:06] VITALS: BMI 27.4
--- OUTSIDE RECORDS SUMMARY | 2025-06-25 11:14 | XMS_ITS | Clinical Summary ---
Author Organization [facility] Address [address] [place] [address] Care Team Providers Care Intelligence Support Officer Name Role Phone Pcp, No Primary [...] HPV Vaccines (No Doses Required) Completed Insurance [facility] MEDICARE PART A & B MEDICARE PART A & B [facility] Care Teams Intelligence Support Officer Relationship Specialty Start Date End Date Pcp, No PCP - General General Medicine 11/10/22
--- OUTSIDE RECORDS SUMMARY | 2025-06-25 11:14 | XMS_ITS | Clinical Summary ---
Author Organization [facility] Address [address] [place] [address] Phone Care Team Providers Care Restaurant Managing Partner Name Role Phone Physician, No Pcp Primary [...] times a day. 60 each 5 Active Surgical History Surgery Date Site/Laterality Comments VASECTOMY PROCEDURE:VASECTOMY HERNIA REPAIR 02/08/2023 Bilateral PROCEDURE:INGUINAL HERNIA REPAIR;COMMENT:Procedure: LAPAROSCOPY REPAIR HERNIA INGUINAL; Surgeon: Anthony Wharton MD; Location: [facility]BULATORY SURGERY; Service: General; Laterality: Bilateral; THIS IS A 90 MIN CASE Medical History Medical History Date Comments ADHD (attention deficit hype ractivity disorder) DX:ADHD (attention deficit h yperactivity disorder) Bipolar 1 disorder ([facility] V24, [facility] V28) DX:Bipolar 1 disorder ([facility]) Migraine DX:Migraine GERD (gastroesophageal reflux disease) [...] Date Smoking Tobacco: Every Day Cigarettes 1.3 18.9 Started: 08/14/2006 Smokeless Tobacco: Never Alcohol Use [...] this topic Medical Devices Implanted Type Area Scow Hand Device Identifier Shelf Expiration Date Model / Serial / Lot Mesh 3d Max 4.3x6.3 Rt Lrg Dimensional Prefrm Rt Ster No Crba-Davl [id number] Implanted:Qty: 1 on 02/08/2023 by Anthony Wharton MD Right: Inguinal CR BARD - DAVOL DIV 07/11/2027 [id number] / / [id number] Mesh 3d Max 4.3x6.3 Lft Lrg Dimensional Prefrm Lft Ster N Crba-Davl [id number] Implanted:Qty: 1 on 02/08/2023 by Anthony Wharton MD Right: Inguinal CR BARD - DAVOL DIV 06/10/2027 [id number] / / [id number] Procedures Procedure Name Priority Date/Time Associated Diagnosis Comments COMPREHENSIVE METABOLIC PANEL STAT 12/31/2024 12:32 PM EDT from Last 3 Months or Most Recently Relevant to Health Maintenance Results * (ABNORMAL) Comprehensive Metabolic Panel (CMP) (12/31/2024 12:32 PM EDT) Sodium 139 135 - 145 mmol/L LAB CHEMISTRY METHOD 12/31/2024 1:12 PM EDT [facility] Potassium 3.7 3.5 - 5.1 mmol/L LAB CHEMISTRY METHOD 12/31/2024 1:12 PM EDT [facility] Chloride 103 98 - 107 mmol/L LAB CHEMISTRY METHOD 12/31/2024 1:12 PM EDT [facility] CO2 27 24 - 32 mmol/L LAB CHEMISTRY METHOD 12/31/2024 1:12 PM EDT [facility] Anion Gap 9 5 - 14 LAB CHEMISTRY METHOD 12/31/2024 1:12 PM EDT [facility] Glucose 95 70 - 199 mg/dL LAB CHEMISTRY METHOD 12/31/2024 1:12 PM EDT [facility] BUN 11 9 - 20 mg/dL LAB CHEMISTRY METHOD 12/31/2024 1:12 PM EDT [facility] Creatinine 0.70 0.70 - 1.30 mg/dL LAB CHEMISTRY METHOD 12/31/2024 1:12 PM EDT [facility] eGFR 127 >=60 mL/min/1. 73m2 LAB CHEMISTRY METHOD 12/31/2024 1:12 PM EDT [facility] Comment:Calculation based on the Chronic Kidney Disease Epidemiology Collaboration (CKD-EPI) equation refit without adjustment for race. BUN/Creatinine Ratio 15.7 12.0 - 20.0 LAB CHEMISTRY METHOD 12/31/2024 1:12 PM EDT [facility] Calcium 9.5 8.4 - 10.2 mg/dL LAB CHEMISTRY METHOD 12/31/2024 1:12 PM EDT [facility] AST (SGOT) 18 5 - 40 unit/L LAB CHEMISTRY METHOD 12/31/2024 1:12 PM EDT [facility] ALT (SGPT) 20 7 - 52 unit/L LAB CHEMISTRY METHOD 12/31/2024 1:12 PM EDT [facility] Alkaline Phosphatase 57 34 - 104 unit/L LAB CHEMISTRY METHOD 12/31/2024 1:12 PM EDT [facility] Total Protein 7.3 6.4 - 8.5 g/dL LAB CHEMISTRY METHOD 12/31/2024 1:12 PM EDT [facility] Albumin 4.6 3.5 - 5.0 g/dL LAB CHEMISTRY METHOD 12/31/2024 1:12 PM EDT [facility] Total Bilirubin 1.1(H) 0.3 - 1.0 mg/dL LAB CHEMISTRY METHOD 12/31/2024 1:12 PM EDT [facility] Blood Venous blood specimen / Unknown Venipuncture / Unknown 12/31/2024 12:32 PM EDT 12/31/2024 12:37 PM EDT Yusuf Mckay NP LAB BLOOD ORDERABLES Final Res ult [facility] [address] [place] [address], from Last 3 Months or Most Recently Relevant to Health Maintenance Insurance MEDICAID - [place] MEDICARE MEDICAID - [place] Care Teams Restaurant Managing Partner Relationship Specialty Start Date End Date Physician, No Pcp PCP - General 12/31/24
--- OUTSIDE RECORDS SUMMARY | 2025-06-25 11:14 | XMS_ITS | Patient Health Record ---
Author Organization [facility] Address [address] [place] [address] Care Team Providers Care Silk Top Hat Body Maker Name Role Phone Claudio Palmira Primary Care [...] W/U Status Risk Notes Problem Mixed hyperlipidemia (128883290) Mixed hyperlipidemia (E78.2) Active confirmed Problem Essential hypertension (27375618) Essential hypertension (I10) Active confirmed Problem Obese class I (finding) (555420021240697) Obesity, Class I, BMI 30-34.9 (E66.9) Active confirmed Plan Of Treatment Pending Test Test Name Order Date CHLAMYDIA/N. GONORRHOEAE DNA, SDA 2017 Insurance Providers Payer Name Payer Address Payer Phone Subscriber Number Group Number Insured Name Patient Relationship to Insured Coverage Start Date Coverage End Date Medicare A NGS PPS UB [address] [place], [place] [id number] Macho Ar[place]ula Self - patient is the insured [facility] A SECONDARY [address] [place], [place] [address] [id number] Macho Arambula Self - patient is the insured Medical (General) History Medical History History ICD Code Bipolar Disorder ADHD Obesity class I Hyperlipidemia Htn Surgical History Surgery Date(Month/Year)
--- OUTSIDE RECORDS SUMMARY | 2025-06-25 11:14 | XMS_ITS | Clinical Summary ---
Author Organization [facility] Address [address] [place] [address] Care Team Providers Care Company Laundry Worker Name Role Phone Coleen Norman MD [...] this topic Medical Devices Implanted Type Area Biological Lab Technician Device Identifier Shelf Expiration Date Model / Serial / Lot Mesh 3d Max 4.3x6.3 Rt Lrg Dimensional Prefrm Rt Ster No Crba-Davl [id number] - [id number] Implanted:Qty: 1 on 02/08/2023 by Anthony Wharton MD at [facility] and Med Right: Inguinal CR BARD - DAVOL DIV 07/11/2027 [id number] / / [id number] Mesh 3d Max 4.3x6.3 Lft Lrg Dimensional Prefrm Lft Ster N Crba-Davl [id number] - [id number] Implanted:Qty: 1 on 02/08/2023 by Anthony Wharton MD at [facility] and [facility] Right: Inguinal CR BARD - DAVOL DIV 06/10/2027 [id number] / / [id number] Care Teams Company Laundry Worker Relationship Specialty Start Date End Date Coleen Norman MD PCP - General 02/07/24
== END 2025-06-25 10:18 | disposition home or self-care (01) ==
LOC: HO.HGS 09:48
PROVIDERS: PCP Student in an Organized Health Care Education/Training Program; Visit Provider Surgery
DX: R10.31 Right lower quadrant pain (principal)
CPT/HCPCS: 99212

== ENCOUNTER → 2025-06-25 09:47 | Outpatient (BNVA) | payer MEDICARE, MEDICAID, SELFPAY | PROVIDERS: PCP Student in an Organized Health Care Education/Training Program; Visit Provider Surgery | DX: R10.31 Right lower quadrant pain (principal); Z72.0 Tobacco use | CPT/HCPCS: 99212 ==

== ENCOUNTER 2025-06-26 08:30 | Outpatient (AMB) | payer MEDICARE, MEDICAID, SELFPAY ==
--- OUTSIDE RECORDS SUMMARY | 2024-01-15 11:18 | XMS_ITS | Encounter Summary ---
Author Organization [facility] Address [address] [place] [address] Care Team Providers Care Bakery Pastry Internship Name Role Phone Pcp, No Primary Care Provider Unavailabl e Encounter Details Date Type Department Care Team (Late st Contact Info) Description 01/15/2024 12:18 PM EDT Hospital Encounter [facility] [address] [place] [address] Renita Carcamo, CHRISTOPHER [address] [place] [address] Social History Tobacco Use Types Packs/Day Years [...] on filedocumented in this encounter Care Teams Bakery Pastry Internship Relationship Specialty Start Date End Date Pcp, No PCP - General General Medicine 11/10/22 documented as of this encounter
--- NOTE | 2025-06-26 08:46 | MHC.PC.OV ---
Vital Signs 06/26/25 08:49 Height 5 ft 10.24 in Weight 193 lb 2 oz BMI 27.5 BP 149/87 H Blood Pressure Location Rt brachial Position Sitting Respiration 17 Pulse 76 Pulse Source Monitor Temp 98.2 F Temp Source Oral Pulse Oximetry (%) 100 Oxygen Delivery Method Room Air Intake Visit Reasons: 1 month follow up Intake Note: follow up [place] Manager Required: No Accompanied by: Self / Same As Patient Allergies No Known Allergies Allergy (Verified 06/26/25 08:49) Medication List - Last Reconciled 06/26/25 by Neptali Paulino MD amlodipine 10 mg PO DAILY triamcinolone acetonide 0.1% 1 appl topical DAILY Tobacco use date assessed: 05/29/25 Dental Screening Dental Screen Date: 05/29/25 HPI HPI Comments History of Present Illness Details History of Present Illness The patient is a 29 year old male presenting with follow-up on left-sided pain and for a medication refill. Abdominal Pain: The patient reports ongoing pain on his left side, for which he was evaluated at [facility] where a CT scan was performed. The CT scan reportedly showed a finding on the right side, which is inconsistent with the patient's left-sided symptoms. He was also seen by a general surgeon who reportedly did not feel anything on physical examination. Hypertension and Medication Nonadherence: The patient reports that he has not been taking his blood pressure medication. He attributes this to recent personal stressors, including leaving his house. Medications: - Unspecified blood pressure medication, which the patient has not been taking. Social History: - Housing: The patient reports he recently left his home and is now staying with his father. - Substance Use: The patient states, I didn???t smoke today, too, implying regular use of a smoked substance. - Social Support: He was informed about support resources available through the clinic, including a nurse and a community navigator, should he require assistance. Diagnostic Results: - CT Scan ([facility]): Reportedly showed an unspecified finding on the right side, though the patient's pain is on the left. Past Medical History - Hypertension Health Maintenance [facility] Medical History Umbilical pain Inguinal pain Cannabis use disorder Visual impairment Migraine Hypertension GERD (gastroesophageal reflux disease) Bipolar 1 disorder ADHD (attention deficit hyperactivity disorder) Surgical History History of inguinal hernia repair History of inguinal hernia repair, bilateral H/O vasectomy H/O laparoscopy Family History Father Diabetes High blood pressure Mother Diabetes High blood pressure Social History Housing: House Alcohol intake: current Alcohol intake frequency: does not drink Patient Tobacco Use Status: Current everyday Tobacco user Cigarette Packs Per Day: 1 Cigarettes Per Day: 20 Substance Use Type: Marijuana service: No Current occupational status: employed Cognitive needs: No Hearing needs: No Vision needs: Yes (rx glasses) Questionnaire Thrive Questionnaire Date Thrive assessed: 05/29/25 ARIANNE-7 AMB Questionnaire ARIANNE-7 Date ARIANNE - 7 assessed: 05/29/25 Source: Developed by Drs. Vinicius Thomas, Raquel Tiwari, Johnathon Lagos and colleagues, with an educational kim from [employer] Review of Systems Narrative Review of Systems - Abdominal: Reports pain on his left side. 10-point ROS reviewed and negative except as noted in HPI Physical exam (Primary Care) Vital Signs: Last Vital Signs Temp 98.2 F 06/26/25 08:49 Pulse 76 06/26/25 08:49 Resp 17 06/26/25 08:49 BP 149/87 H 06/26/25 08:49 Pulse Ox 100 06/26/25 08:49 Oxygen Delivery Method Room Air 06/26/25 08:49 BMI result Body Mass Index 27.5 Tobacco/Smoking Status: Tobacco use Status Tobacco use date assessed 05/29/25 06/26/25 08:46 Patient Tobacco Use Status Current everyday Tobacco 06/26/25 08:46 Thrive Assessment: Date of Thrive Assessment Date Thrive assessed 05/29/25 06/26/25 08:46 Narrative Physical Exam General: Well-appearing, in no acute distress. Vital signs: Within normal limits. HEENT: Normocephalic, atraumatic. PERRLA, EOMI. Conjunctiva clear, sclera anicteric. Oropharynx clear, mucous membranes moist. TMs intact bilaterally. Neck: Supple, no lymphadenopathy, no thyromegaly, no JVD or carotid bruits. Cardiovascular: RRR, normal S1/S2, no murmurs, rubs, or gallops. Peripheral pulses 2+ and symmetric. No edema. Respiratory: Lungs clear to auscultation bilaterally, no wheezes, rales, or rhonchi. Normal effort. Abdomen: Soft, non-tender, non-distended. Normoactive bowel sounds. No hepatosplenomegaly, no masses. MSK: Full range of motion, no joint swelling or deformity. Normal gait. Skin: Warm, dry, intact. No rashes, lesions, or pallor. Neuro: Alert and oriented x3. Cranial nerves II-XII intact. Strength 5/5 throughout. Sensation intact. Reflexes 2+ symmetric. Normal coordination and gait. Psych: Appropriate mood and affect. Normal judgment and insight. Coding Level of Care Code Est Pt Level 3 (26750) Diagnoses Right inguinal pain R10.31 Laterality: right Cannabis use disorder F12.90 Assessment & Plan Assessment & Plan (1) Inguinal pain: Code(s): R10.30 - Lower abdominal pain, unspecified Category: Medical Qualifiers: Laterality: right Qualified Code(s): R10.31 - Right lower quadrant pain (2) Cannabis use disorder: Code(s): F12.90 - Cannabis use, unspecified, uncomplicated Category: Medical Plan Consent Patient was informed and verbally consented to the use of an ambient scribe for clinic note documentation during this visit. Plan 1. Abdominal Pain - The patient is scheduled to have a CT scan on July 17. - He will follow up with the general surgeon on July 24 to review the findings. - Further planning will depend on the CT scan report. 2. Hypertension And Medication Nonadherence - The patient's blood pressure medication was refilled. - The prescription was sent to the [facility] pharmacy at [address] [place] [address]. - The patient was instructed to resume taking his medication. Discussion Notes I spoke with the patient about his ongoing left-sided pain and his recent frustrating encounter with a general surgeon. We confirmed his plan to undergo a CT scan on July 17 and follow up with the surgeon on July 24 for a review of the findings. We also addressed his nonadherence to his blood pressure medication, which he attributed to recent housing instability. I refilled his medication, counseled him on the importance of taking it, and offered social support resources available through our clinic, including a nurse and community navigator, should he need assistance. I encouraged him to contact me if he needs anything. Patient Instructions - Please start taking your blood pressure medication again as prescribed. - Your prescription refill has been sent to the [facility] pharmacy at [address] [facility]. - Make sure to go to your scheduled CT scan on July 17. - Follow up with the general surgeon on July 24 to go over the results of your CT scan. - If you need any help, please reach out to our office. Medical Decision Making The patient is a 29-year-old male with persistent left-sided pain and nonadherence to antihypertensive medication. Regarding his pain, despite a previous CT showing a right-sided finding and an unremarkable surgical exam, his symptoms warrant further investigation, which is appropriately planned with an upcoming CT scan and surgical follow-up. Management will be guided by these results. His nonadherence to blood pressure medication is linked to significant social stressors, including housing instability. Recognizing the impact of social determinants on his health, I offered clinic-based support resources to address his needs holistically. To mitigate cardiovascular risk, I have refilled his medication and strongly counseled him on adherence. Total time spent caring for the patient today was 20 minutes. This includes time spent before the visit reviewing the chart, time spent documenting, and time spent reviewing laboratory results, diagnostic imaging, medications, performing a medically necessary evaluation, counseling on diagnoses, care coordination Medications: Refilled amlodipine 10 mg PO DAILY 90 tabs 0RF I10 - Essential (primary) hypertension
[2025-06-26 08:49] VITALS: BP 149/87; PULSE 76; RESP 17; TEMP 36.8; O2SAT 100; BMI 27.5
--- OUTSIDE RECORDS SUMMARY | 2025-06-26 08:51 | XMS_ITS | Patient Health Record ---
Author Organization [facility] Address [address] [place] [address] Care Team Providers Care Hat And Cap Sewer Name Role Phone Claudio Palmira Primary Care Provider [phone] Reason For Referral No Information Social History [...] W/U Status Risk Notes Problem Mixed hyperlipidemia (266091089) Mixed hyperlipidemia (E78.2) Active confirmed Problem Essential hypertension (32936870) Essential hypertension (I10) Active confirmed Problem Obese class I (finding) (573493346200799) Obesity, Class I, BMI 30-34.9 (E66.9) Active confirmed Plan Of Treatment Pending Test Test Name Order Date CHLAMYDIA/N. GONORRHOEAE DNA, SDA 2017 Insurance Providers Payer Name Payer Address Payer Phone Subscriber Number Group Number Insured Name Patient Relationship to Insured Coverage Start Date Coverage End Date Medicare A NGS PPS UB [address] [place], [place] [id number] Macho Aarmbula Self - patient is the insured [facility] A SECONDARY [address] [place], [place] [id number] Macho Arambula Self - patient is the insured Medical (General) History Medical History History ICD Code Bipolar Disorder ADHD Obesity class I Hyperlipidemia Htn Surgical History Surgery Date(Month/Year)
--- OUTSIDE RECORDS SUMMARY | 2025-06-26 08:51 | XMS_ITS | Clinical Summary ---
Author Organization [facility] Address [address] [place] [address] Care Team Providers Care Clerical Assistant Name Role Phone Coleen Norman MD Primary [...] this topic Medical Devices Implanted Type Area Target Network Analyst Device Identifier Shelf Expiration Date Model / Serial / Lot Mesh 3d Max 4.3x6.3 Rt Lrg Dimensional Prefrm Rt Ster No Crba-Davl [id number] - [id number] Implanted:Qty: 1 on 02/08/2023 by Anthony Wharton MD [place] [facility] [place] [facility] [place] Right: Inguinal CR BARD - DAVOL DIV 07/11/2027 [id number] / / [id number] Mesh 3d Max 4.3x6.3 Lft Lrg Dimensional Prefrm Lft Ster N Crba-Davl [id number] - [id number] Implanted:Qty: 1 on 02/08/2023 by Anthony Wharton MD at [facility] [place] [facility] Right: Inguinal CR BARD - DAVOL DIV 06/10/2027 [id number] / / [id number] Care Teams Clerical Assistant Relationship Specialty Start Date End Date Coleen Norman MD PCP - General 02/07/24
--- OUTSIDE RECORDS SUMMARY | 2025-06-26 08:51 | XMS_ITS | Clinical Summary ---
Author Organization [facility] Address [address] [place] [address] Phone Care Team Providers Care Director Employment Name Role Phone Physician, No Pcp Primary [...] HERNIA INGUINAL; Surgeon: Anthony Wharton MD; Location: [facility]ERY; Service: General; Laterality: Bilateral; THIS IS A 90 MIN CASE Medical History Medical History Date Comments ADHD (attention deficit hype ractivity disorder) DX:ADHD (attention deficit h yperactivity disorder) Bipolar 1 disorder ([facility] V24, [facility] V28) DX:Bipolar 1 disorder ([facility]) Migraine DX:Migraine GERD (gastroesophageal reflux disease) [...] this topic Medical Devices Implanted Type Area Branch Sales Manager Device Identifier Shelf Expiration Date Model / Serial / Lot Mesh 3d Max 4.3x6.3 Rt Lrg Dimensional Prefrm Rt Ster No Crba-Davl [id number] Implanted:Qty: 1 on 02/08/2023 by Anthony Wharton MD Right: Inguinal CR BARD - DAVOL DIV 07/11/2027 [id number] / / [id number] Mesh 3d Max 4.3x6.3 Lft Lrg Dimensional Prefrm Lft Ster N Crba-Davl [id number] Implanted:Qty: 1 on 02/08/2023 by Anthony Wharton MD Right: Inguinal CR BARD - DAVOL DIV 06/10/2027 [id number] / / [id number] Procedures Procedure Name Priority Date/Time Associated Diagnosis Comments COMPREHENSIVE METABOLIC PANEL STAT 12/31/2024 12:32 PM EDT from Last 3 Months or Most Recently Relevant to Health Maintenance Results * (ABNORMAL) Comprehensive Metabolic Panel (CMP) (12/31/2024 12:32 PM EDT) Sodium 139 135 - 145 mmol/L LAB CHEMISTRY METHOD 12/31/2024 1:12 PM EDT [facility] Potassium 3.7 3.5 - 5.1 mmol/L LAB CHEMISTRY METHOD 12/31/2024 1:12 PM EDT [facility] Chloride 103 98 - 107 mmol/L LAB CHEMISTRY METHOD 12/31/2024 1:12 PM EDT [facility] CO2 27 24 - 32 mmol/L LAB CHEMISTRY METHOD 12/31/2024 1:12 PM EDT [facility] Anion Gap 9 5 - 14 LAB CHEMISTRY METHOD 12/31/2024 1:12 PM EDT [facility] Glucose 95 70 - 199 mg/dL LAB CHEMISTRY METHOD 12/31/2024 1:12 PM EDT [facility] BUN 11 9 - 20 mg/dL LAB CHEMISTRY METHOD 12/31/2024 1:12 PM EDT [facility] Creatinine 0.70 0.70 - 1.30 mg/dL LAB CHEMISTRY METHOD 12/31/2024 1:12 PM EDT [facility] eGFR 127 >=60 mL/min/1. 73m2 LAB CHEMISTRY METHOD 12/31/2024 1:12 PM EDT [facility] Comment:Calculation based on the Chronic Kidney Disease Epidemiology Collaboration (CKD-EPI) equation refit without adjustment for race. BUN/Creatinine Ratio 15.7 12.0 - 20.0 LAB CHEMISTRY METHOD 12/31/2024 1:12 PM EDT [facility] Calcium 9.5 8.4 - 10.2 mg/dL LAB CHEMISTRY METHOD 12/31/2024 1:12 PM EDT [facility] AST (SGOT) 18 5 - 40 unit/L LAB CHEMISTRY METHOD 12/31/2024 1:12 PM EDT [facility] ALT (SGPT) 20 7 - 52 unit/L LAB CHEMISTRY METHOD 12/31/2024 1:12 PM EDT [facility] Alkaline Phosphatase 57 34 - 104 unit/L LAB CHEMISTRY METHOD 12/31/2024 1:12 PM EDT [facility] Total Protein 7.3 6.4 - 8.5 g/dL LAB CHEMISTRY METHOD 12/31/2024 1:12 PM EDT [facility] Albumin 4.6 3.5 - 5.0 g/dL LAB CHEMISTRY METHOD 12/31/2024 1:12 PM EDT [facility] Total Bilirubin 1.1(H) 0.3 - 1.0 mg/dL LAB CHEMISTRY METHOD 12/31/2024 1:12 PM EDT [facility] Blood Venous blood specimen / Unknown Venipuncture / Unknown 12/31/2024 12:32 PM EDT 12/31/2024 12:37 PM EDT Yusuf Mckay NP LAB BLOOD ORDERABLES Final Res ult [facility] [address] [place] [address], from Last 3 Months or Most Recently Relevant to Health Maintenance Insurance [place] - [place] Care Teams Director Employment Relationship Specialty Start Date End Date Physician, No Pcp PCP - General 12/31/24
--- OUTSIDE RECORDS SUMMARY | 2025-06-26 08:51 | XMS_ITS | Clinical Summary ---
Author Organization [facility] Address [address] [place] [address] Care Team Providers Care Human Resources Partner Name Role Phone Pcp, No Primary Care [...] HPV Vaccines (No Doses Required) Completed Insurance [facility] MEDICARE PART A & B MEDICARE PART A & B [facility] Care Teams Human Resources Partner Relationship Specialty Start Date End Date Pcp, No PCP - General General Medicine 11/10/22
== END 2025-06-26 09:07 | disposition home or self-care (01) ==
LOC: HO.HMCFMS 08:31
PROVIDERS: PCP Student in an Organized Health Care Education/Training Program; Visit Provider Student in an Organized Health Care Education/Training Program
DX: R10.31 Right lower quadrant pain (principal); F12.90 Cannabis use, unspecified, uncomplicated

== ENCOUNTER → 2025-06-26 08:30 | Outpatient (BNVA) | payer MEDICARE, MEDICAID, SELFPAY | PROVIDERS: PCP Student in an Organized Health Care Education/Training Program; Visit Provider Student in an Organized Health Care Education/Training Program | DX: R10.31 Right lower quadrant pain (principal); F12.90 Cannabis use, unspecified, uncomplicated; I10 Essential (primary) hypertension | CPT/HCPCS: 99212 ==

== ENCOUNTER 2025-07-08 13:13 | Outpatient (AMB) | payer MEDICARE, MEDICAID, SELFPAY ==
--- OUTSIDE RECORDS SUMMARY | 2024-01-15 11:18 | XMS_ITS | Encounter Summary ---
Author Organization [facility] Address [address] [place] [address] Care Team Providers Care Surgical Garment Inspector Name Role Phone Pcp, No Primary Care Provider Unavailabl e Encounter Details Date Type Department Care Team (Late st Contact Info) Description 01/15/2024 12:18 PM EDT Hospital Encounter [facility] [address] [place] [address] Renita Carcamo, CHRISTOPHER [address] [place] [address] Social History Tobacco Use Types Packs/Day Years [...] on filedocumented in this encounter Care Teams Surgical Garment Inspector Relationship Specialty Start Date End Date Pcp, No PCP - General General Medicine 11/10/22 documented as of this encounter
--- NOTE | 2025-07-08 13:18 | MHC.OFFVIS ---
Intake Visit Reasons: Inguineal pain s/p vasectomy 2 years ago Intake Note: New Patient is present for inguineal pain Urology Rx:none Blood Thinners:none Imaging completed: Retroperitoneum US 05/09/25 Smoker : yes Salesperson Art Objects Required: No Accompanied by: Self / Same As Patient Allergies No Known Allergies Allergy (Verified 07/08/25 13:19) HPI Comments Details: Macho is a pleasant male. He is a patient of . He is seen for the following urologic conditions - right inguinal pain Right inguinal pain Works in auto parts repair Prior vasectomy On examination has pain at insertion of rectus abdominis in medial aspect of right inguinal canal. Also with left lateral inguinal edge pain. These are consistent with inguinal disruption Discussed pathophysiology of inguinal disruption Demonstrated self-care exercises He showed understanding Return p.r.n. if pain does not resolve [facility] Medical History Umbilical pain Inguinal pain Cannabis use disorder Visual impairment Migraine Hypertension GERD (gastroesophageal reflux disease) Bipolar 1 disorder ADHD (attention deficit hyperactivity disorder) Surgical History History of inguinal hernia repair History of inguinal hernia repair, bilateral H/O vasectomy H/O laparoscopy Family History Father Diabetes High blood pressure Mother Diabetes High blood pressure Social History Housing: House Alcohol intake: current Alcohol intake frequency: does not drink Patient Tobacco Use Status: Current everyday Tobacco user Cigarette Packs Per Day: 1 Cigarettes Per Day: 20 Substance Use Type: Marijuana service: No Current occupational status: employed Cognitive needs: No Hearing needs: No Vision needs: Yes (rx glasses) Review of Systems Const Denies chills and Denies fever(s) Card Reports no additional complaints and Denies syncope Resp Denies cough GI Denies abdominal pain and Denies heartburn Reports as per HPI and Denies change in libido Neuro Denies syncope Psych Denies change in libido Endo Denies change in libido Physical Exam Const General: cooperative, healthy appearing, comfortable and no acute distress Orientation/consciousness: patient oriented x3 HEENT Face and sinus: Yes normal facial exam Mouth: moist mucous membranes Neck Neck: Yes normal visual inspection, Yes full ROM and Yes trachea midline Chest Chest palpation & inspection: normal inspection of the chest Resp Effort & Inspection: normal respiratory effort, able to speak in complete sentences and no respiratory distress GI Inspection: Yes normal to inspection Back/Spine/Pelvis Cervical Spine: normal cervical lordosis Thoracic/Lumbar Spine: thoracic and lumbar spine normal to inspection Skin General skin exam: no rashes or lesions noted Neuro General: patient oriented x3, gait normal, tone normal and moves all extremities Extrem General: Yes normal to inspection and Yes capillary refill normal Results AMB Urinalysis, Automated UA Leukoctes 0 Lilly/uL Last Edit by Anali Anguiano [facility] on 07/08/25 13:36 UA Nitrite Negative Last Edit by Anali Anguiano [facility] on 07/08/25 13:36 UA Urobilinogen 0.2 mg/dL Last Edit by Anali Anguiano [facility] on 07/08/25 13:36 UA Protein 0 mg/dL Last Edit by Anali Anguiano [facility] on 07/08/25 13:36 UA pH 6.0 Last Edit by Anali Anguiano [facility] on 07/08/25 13:36 UA Blood 0 Ignacio/uL Last Edit by Anali Anguiano [facility] on 07/08/25 13:36 UA Specific [place] 1.010 Last Edit by Anali Anguiano [facility] on 07/08/25 13:36 UA Ketone Negative Last Edit by Anali Anguiano [facility] on 07/08/25 13:36 UA Bilirubin 0 mg/dL Last Edit by Anali Anguiano [facility] on 07/08/25 13:36 UA Glucose 0 mg/dL Last Edit by Anali Anguiano [facility] on 07/08/25 13:36 Results Reviewed Results Reviewed: Laboratory Last Values Urine pH (Auto) 6.0 07/08/25 13:35 Specific [place] (Auto) 1.010 07/08/25 13:35 Urine Protein (Auto) 0 mg/dL 07/08/25 13:35 Glucose (UA)(Auto) 0 mg/dL 07/08/25 13:35 Urine Ketones (Auto) Negative 07/08/25 13:35 Urine Blood (Auto) 0 Ignacio/uL 07/08/25 13:35 Urine Nitrite (Auto) Negative 07/08/25 13:35 Urine Bilirubin (Auto) 0 mg/dL 07/08/25 13:35 Urine Urobilinogen (Auto) 0.2 mg/dL 07/08/25 13:35 Leukocyte Esterase (Auto) 0 Lilly/uL 07/08/25 13:35 Assessment & Plan Assessment & Plan (1) Right inguinal pain: Code(s): R10.31 - Right lower quadrant pain Category: Medical Plan P.r.n. follow-up Patient Instructions: This note is constructed using voice recognition software. While every effort has been made to ensure accuracy transmission rebuilder errors may have been included. Imaging studies, laboratory and physical exam results were discussed and reviewed in detail. No major barriers to patient understanding were identified. An opportunity to ask questions regarding the treatment plan was provided. All questions were answered. The patient expressed understanding and agreement with the above treatment plan. The patient is aware they should contact our office by phone for worsening of their current condition or the appearance of new urologic symptoms. Compliance is encouraged with any medications and followup testing that is ordered. It is a privilege to participate in the urologic care of your patient. If you have any questions or concerns regarding treatment for the above conditions, or other urologic issues, please do not hesitate to contact me. The office telephone contact is [phone]. Sincerely, Dr Aniket Mcrae MD, [facility] - Urology Compassionate Specialist Care for the Genitourinary System Coding Level of Care Code New Pt Level 3 (62192) Diagnoses Right inguinal pain R10.31
--- OUTSIDE RECORDS SUMMARY | 2025-07-08 16:59 | XMS_ITS | Patient Health Record ---
Author Organization [facility] Address [address] [place] [address] Care Team Providers Care Road Inspector Name Role Phone Claudio Palmira Primary Care [...] W/U Status Risk Notes Problem Mixed hyperlipidemia (415082915) Mixed hyperlipidemia (E78.2) Active confirmed Problem Essential hypertension (03499043) Essential hypertension (I10) Active confirmed Problem Obese class I (finding) (326634974371660) Obesity, Class I, BMI 30-34.9 (E66.9) Active confirmed Plan Of Treatment Pending Test Test Name Order Date CHLAMYDIA/N. GONORRHOEAE DNA, SDA 2017 Insurance Providers Payer Name Payer Address Payer Phone Subscriber Number Group Number Insured Name Patient Relationship to Insured Coverage Start Date Coverage End Date Medicare A NGS PPS UB [address] [place], [place] [id number] Macho Arambula Self - patient is the insured [facility] A SECONDARY [address] [place], [place] [id number] Macho Arambula Self - patient is the insured Medical (General) History Medical History History ICD Code Bipolar Disorder ADHD Obesity class I Hyperlipidemia Htn Surgical History Surgery Date(Month/Year)
--- OUTSIDE RECORDS SUMMARY | 2025-07-08 16:59 | XMS_ITS | Clinical Summary ---
Author Organization [facility] Address [address] [place] [address] Care Team Providers Care Campus Recruiter Name Role Phone Coleen Norman MD Primary [...] this topic Medical Devices Implanted Type Area Repairer Auto Clocks Device Identifier Shelf Expiration Date Model / Serial / Lot Mesh 3d Max 4.3x6.3 Rt Lrg Dimensional Prefrm Rt Ster No Crba-Davl [id number] - [id number] Implanted:Qty: 1 on 02/08/2023 by [place] [facility] [place] [facility] [place] Inguinal CR BARD - DAVOL DIV 07/11/2027 [id number] / / [id number] Mesh 3d Max 4.3x6.3 Lft Lrg Dimensional Prefrm Lft Ster N Crba-Davl [id number] - [id number] Implanted:Qty: 1 on 02/08/2023 by [place] Wh[place] [facility] Right: Inguinal CR BARD - DAVOL DIV 06/10/2027 [id number] / / [id number] Care Teams Campus Recruiter Relationship Specialty Start Date End Date Coleen Norman MD PCP - General 02/07/24
--- OUTSIDE RECORDS SUMMARY | 2025-07-08 16:59 | XMS_ITS | Clinical Summary ---
Author Organization [facility] Address [address] [place] [address] Care Team Providers Care Cd Reactor Operator Head Name Role Phone Pcp, No Primary Care [...] HPV Vaccines (No Doses Required) Completed Insurance [facility] MEDICARE PART A & B MEDICARE PART A & B [facility] Care Teams Cd Reactor Operator Head Relationship Specialty Start Date End Date Pcp, No PCP - General General Medicine 11/10/22
== END 2025-07-08 14:21 | disposition home or self-care (01) ==
LOC: HO.HUSH 13:14
PROVIDERS: PCP Student in an Organized Health Care Education/Training Program; Visit Provider Urology
DX: R10.31 Right lower quadrant pain (principal)
CPT/HCPCS: 99203

== ENCOUNTER → 2025-07-08 13:13 | Outpatient (BNVA) | payer MEDICARE, MEDICAID, SELFPAY | PROVIDERS: PCP Student in an Organized Health Care Education/Training Program; Visit Provider Urology | DX: R10.31 Right lower quadrant pain (principal) | CPT/HCPCS: 99202 ==